=== PATIENT | male | born 1935 | race Caucasian/White ===

== ENCOUNTER 2017-10-13 18:08 | Emergency (ER) | payer MEDICARE, OTHER ==
[~2017-10-13] VITALS: Ht 177.8 cm; Wt 72.6 kg
[~2017-10-13 18:08] MED LIST: AMLO10 PO; AMLO5; ASPI81CH PO; ASPI81EC; ATEN25; ATOR10; Amlodipine Besy10 MG PO; CHOL10002; CLON.1 PO; COLCRYS0.6 MG; COLCRYS0.6 MG PO; CRUTCH4 USE; Cialis20 MG PO; FISH1000; FOLI1; HYDACE5 PO; LOVA40 PO; MULTI VIT QD; MULVIT; RAMI2.5; RXHYDACE PO; Ramipril5 MG PO; Synthroid25 MCG PO; TRAM50 PO; [UNRECOGNIZED DRUG - REMARK]
[2017-10-13 19:03] LABS: BASOPHILS ABSOLUTE AUTO 0.03 K/mm3 (0.00-0.23); BASOPHILS PERCENT AUTO 1 % (0-2); EOSINOPHILS ABSOLUTE AUTO 0.06 K/mm3 (0.00-0.68); EOSINOPHILS PERCENT AUTO 1 % (0-6); Hematocrit 38.3 % (37.0-53.0); Hemoglobin 13.2 g/dL (13.5-17.5); IMMATURE GRAN ABSOLUTE AUTO 0.01 K/mm3 (0.00-0.10); IMMATURE GRAN PERCENT AUTO 0 % (0-1); LYMPHOCYTES ABSOLUTE AUTO 0.96 K/mm3 (0.84-5.20); LYMPHOCYTES PERCENT AUTO 17 % (21-46); MONOCYTES PERCENT AUTO 9 % (4-13); Mean Corpuscular HGB 30.8 pg (26.0-34.0); Mean Corpuscular HGB Conc 34.5 g/dL (31.5-36.5); Mean Corpuscular Volume 89 fL (80-100); Mean Platelet Volume 8.7 fL (9.1-12.4); NEUTROPHILS ABSOLUTE AUTO 4.06 K/mm3 (1.96-9.15); NEUTROPHILS PERCENT AUTO 72 % (41-73); Platelet Count 330 K/mm3 (150-400); RDW Coefficient Variation 12.8 % (11.7-14.2); RDW Standard Deviation 42.2 fL (35.1-46.3); Red Blood Cell Count 4.29 M/mm3 (4.30-5.90); White Blood Cell Count 5.62 K/mm3 (4.00-11.30)
[2017-10-13] MEDS ORDERED: Saw Palmetto160 MG PO (19:07)
[2017-10-13] MEDS ORDERED: ASPI81CH PO (19:08)
[2017-10-13 19:22] LABS: Alanine Aminotransfer (ALT/SGP 27 U/L (12-78); Albumin, Blood 3.7 g/dL (3.4-5.0); Alk Phos 101 U/L (50-136); Anion Gap 9 mmol/L (6-16); Aspartate Aminotrans (AST/SGOT 31 U/L (12-37); Bilirubin, Total 0.5 mg/dL (0.1-1.0); Blood Urea Nitrogen 20 mg/dL (8-24); Bun/Creatinine Ratio 14.6 (12.0-20.0); CO2, Blood 26 mmol/L (21-32); Calcium, Blood 8.8 mg/dL (8.5-10.1); Chloride, Blood 100 mmol/L (98-108); Creatinine, Blood 1.37 mg/dL (0.60-1.20); Globulin, Blood 3.8 g/dL (2.2-4.0); Glomerular Filtration Rate 53 (60-); Glucose, Blood 114 mg/dL (70-99); Potassium, Blood 3.9 mmol/L (3.5-5.5); Sodium, Blood 135 mmol/L (136-145); Total Protein, Blood 7.5 g/dL (6.4-8.2)
[2017-10-13 20:15] LABS: Troponin I <0.015 ng/mL (0.000-0.040)
[2017-10-13] MEDS ORDERED: MOTION RELIEF25 MG PO (20:54)
[2017-10-13] MEDS ORDERED: Zofran Odt8 MG PO (20:54)
[2017-10-13] MEDS ORDERED: Ativan0.5 MG PO (20:54)
== END 2017-10-13 21:34 | disposition home or self-care (01) ==
LOC: ER 18:08
PROVIDERS: Emergency Medicine
DX: R42 Dizziness and giddiness (principal)
CPT/HCPCS: 36415; 70450; 80053; 84484; 85025; 93005; 93010; 96374; 96375; 99284; J2060; J2405

== ENCOUNTER 2018-09-07 11:40 | Observation (INO) | payer MEDICARE, OTHER ==
[~2018-09-07] VITALS: Ht 177.8 cm; Wt 68.3 kg
[~2018-09-07 11:40] MED LIST changes: +Ativan0.5 MG PO; +MOTION RELIEF25 MG PO; +Saw Palmetto160 MG PO; +Zofran Odt8 MG PO
[2018-09-07 12:24] LABS: BASOPHILS ABSOLUTE AUTO 0.02 K/mm3 (0.00-0.23); BASOPHILS PERCENT AUTO 0 % (0-2); EOSINOPHILS ABSOLUTE AUTO 0.03 K/mm3 (0.00-0.68); EOSINOPHILS PERCENT AUTO 0 % (0-6); Hematocrit 31.4 % (37.0-53.0); Hemoglobin 10.9 g/dL (13.5-17.5); IMMATURE GRAN ABSOLUTE AUTO 0.02 K/mm3 (0.00-0.10); IMMATURE GRAN PERCENT AUTO 0 % (0-1); LYMPHOCYTES ABSOLUTE AUTO 0.74 K/mm3 (0.84-5.20); LYMPHOCYTES PERCENT AUTO 10 % (21-46); MONOCYTES ABSOLUTE AUTO 0.91 K/mm3 (0.16-1.47); MONOCYTES PERCENT AUTO 12 % (4-13); Mean Corpuscular HGB 30.4 pg (26.0-34.0); Mean Corpuscular HGB Conc 34.7 g/dL (31.5-36.5); Mean Corpuscular Volume 88 fL (80-100); Mean Platelet Volume 8.3 fL (9.1-12.4); NEUTROPHILS ABSOLUTE AUTO 5.69 K/mm3 (1.96-9.15); NEUTROPHILS PERCENT AUTO 77 % (41-73); Platelet Count 312 K/mm3 (150-400); RDW Coefficient Variation 12.8 % (11.7-14.2); RDW Standard Deviation 41.7 fL (35.1-46.3); Red Blood Cell Count 3.58 M/mm3 (4.30-5.90); White Blood Cell Count 7.41 K/mm3 (4.00-11.30)
[2018-09-07 12:45] LABS: Albumin, Blood 3.3 g/dL (3.4-5.0); Bilirubin, Total 0.4 mg/dL (0.1-1.0); Calcium, Blood 8.4 mg/dL (8.5-10.1); Creatinine, Blood 1.86 mg/dL (0.60-1.20); Globulin, Blood 3.2 g/dL (2.2-4.0); Potassium, Blood 4.1 mmol/L (3.5-5.5); Total Protein, Blood 6.5 g/dL (6.4-8.2)
[2018-09-07] MEDS ORDERED: ANTACID 1000-21 EACH PO (15:32)
[2018-09-07] MEDS ORDERED: Calcium Magnes1 EACH PO (16:35)
--- NOTE | 2018-09-07 18:15 | NUR ---
SHIFT SUMMARY PT. [facility]EL[facility]IR WITH AND DAUGHTER BY HIS SIDE. HE IS VERY PLEASENT-AXO TO SELF, PLACE, SITUATION. HE DENIES PAIN AND SOB. HE IS IN NO DISTRESS, RESTING IN HIS ROOM WATCHING TELEVISION. HE IS INDEPENDENT IN HIS ROOM. HE REPORTS HAVING SHINGLES DIAGNOSED 4 MONTHS AGO. THE RASH IS VISIBLE ON HIS RIGHT AXILLARY/LATERAL RIGHT CHEST. THE RASH IS WELL LOCALIZED TO THAT AREA--NOT SPREADING TO ANTERIOR TRUNK. NO OPEN SORES OR CRUSTING OVER OF RASH. PATIENT UNDERSTANDS PLAN TO NPO AFTER MIDNIGHT FOR EGD IN MORNING
--- NOTE | 2018-09-07 18:31 | NUR ---
STUDENT HAS CARED FOR PT TODAY, PLEASE REFER TO STUDENT NOTES FOR SHIFT SUMMARY.
--- NOTE | 2018-09-08 05:14 | NUR ---
RATE INSERTER SUMMARY NO ACUTE CHANGES THIS SHIFT. PT AAOX4 AND COOPERATIVE WITH CARE. STANDBY ASSIST INTO THE BATHROOM. PT HAS BEEN NPO SINCE MIDNIGHT IN PREPARATION FOR AN EGD LATER THIS MORNING. PT DENIES PAIN, SOB, N/V. VSS, WILL CONTINUE TO MONITOR.
[2018-09-08 05:23] LABS: BASOPHILS ABSOLUTE AUTO 0.04 K/mm3 (0.00-0.23); BASOPHILS PERCENT AUTO 1 % (0-2); EOSINOPHILS ABSOLUTE AUTO 0.06 K/mm3 (0.00-0.68); EOSINOPHILS PERCENT AUTO 1 % (0-6); Hematocrit 33.9 % (37.0-53.0); Hemoglobin 11.3 g/dL (13.5-17.5); IMMATURE GRAN ABSOLUTE AUTO 0.01 K/mm3 (0.00-0.10); IMMATURE GRAN PERCENT AUTO 0 % (0-1); LYMPHOCYTES ABSOLUTE AUTO 0.93 K/mm3 (0.84-5.20); LYMPHOCYTES PERCENT AUTO 20 % (21-46); MONOCYTES ABSOLUTE AUTO 0.73 K/mm3 (0.16-1.47); MONOCYTES PERCENT AUTO 15 % (4-13); Mean Corpuscular HGB 29.5 pg (26.0-34.0); Mean Corpuscular HGB Conc 33.3 g/dL (31.5-36.5); Mean Corpuscular Volume 89 fL (80-100); Mean Platelet Volume 8.9 fL (9.1-12.4); NEUTROPHILS ABSOLUTE AUTO 2.96 K/mm3 (1.96-9.15); NEUTROPHILS PERCENT AUTO 63 % (41-73); Platelet Count 326 K/mm3 (150-400); RDW Standard Deviation 42.1 fL (35.1-46.3); Red Blood Cell Count 3.83 M/mm3 (4.30-5.90); White Blood Cell Count 4.73 K/mm3 (4.00-11.30)
[2018-09-08 05:35] LABS: International Normalized Ratio 1.03; Prothrombin Time Results 10.9 Sec (9.7-11.5)
[2018-09-08 05:43] LABS: Albumin, Blood 3.3 g/dL (3.4-5.0); Bilirubin, Total 0.4 mg/dL (0.1-1.0); Bun/Creatinine Ratio 16.5 (12.0-20.0); Calcium, Blood 8.7 mg/dL (8.5-10.1); Creatinine, Blood 1.27 mg/dL (0.60-1.20); Globulin, Blood 3.2 g/dL (2.2-4.0); Total Protein, Blood 6.5 g/dL (6.4-8.2)
--- NOTE | 2018-09-08 09:28 | NUR ---
BROUGHT FROM MEDICAL FLOOR TO SDS ALERT ORIENTED FAMILY AT BEDSIDE. BROUGHT TO [facility] ADMISSION TO UNIT STARTED.
--- NOTE | 2018-09-08 09:51 | NUR ---
09/08/18 0951 Jorge A Garcia Bite Block PlacedPATIENT DETERMINED TO BE ASA APPROPRIATE FOR PROPOFOL SEDATION PRIOR TO START OF PROCEDURE BY 3-LEAD EKG REVIEWED WITH PHYSICIAN PRIOR TO START OF PROCEDURE.Patient to ENDO 1History, Chart, Medications and Allergies reviewed before start of procedure.MONITOR INTACT WITH CONTINUOUS PULSE OXIMETRY AND INTERMITTENT BP.Patient confirms NPO status and agrees with scheduled surgery.O2 VIA N/C INTACT THROUGHOUT SEDATION/PROCEDURE.
[2018-09-08] MEDS ORDERED: PANT40 PO (12:07)
[2018-09-08] MEDS ORDERED: SUCR1 PO (12:08)
--- NOTE | 2018-09-08 13:18 | NUR ---
PT DISCHARGE AT 1240 WITH FAMILY TO TRANSPORT. PT WAS ABLE TO EAT HIS CLEAR DIET FOR LUNCH AND TOLERATED WELL. PT DOES TO A LOT OF CLEARING HIS THROAT. AOX4 COOPERATIVE OF CARE. PT HAD PAPERS REVIEWED AND EDUCATIONAL MATERIAL SENT WITH HIM. NO DISTRESS NOTED. REFUSED ESCORT VIA WHEELCHAIR AND WALKED OUT WITH FAMILY.
== END 2018-09-08 12:58 | disposition home or self-care (01) ==
LOC: ER 11:40 → MEDS 11:41 → ER 15:27 → MEDS 16:10 → ENPENDDIS 09-08 10:57 → MEDS 09-08 12:58
PROVIDERS: Emergency Medicine; Student in an Organized Health Care Education/Training Program; ADMIT Internal Medicine
PROC: 0D748ZZ Dilation of Esophagogastric Junction, Via Natural or Artificial Opening Endoscopic (ICD-10-PCS; principal; 2018-09-08 10:00)
PROC: 0DB48ZX Excision of Esophagogastric Junction, Via Natural or Artificial Opening Endoscopic, Diagnostic (ICD-10-PCS; principal; 2018-09-08 10:00)
DX: K22.10 Ulcer of esophagus without bleeding (principal); K22.2 Esophageal obstruction; K44.9 Diaphragmatic hernia without obstruction or gangrene; I10 Essential (primary) hypertension; E78.5 Hyperlipidemia, unspecified; I25.10 Atherosclerotic heart disease of native coronary artery without angina pectoris; I12.9 Hypertensive chronic kidney disease with stage 1 through stage 4 chronic kidney disease, or unspecified chronic kidney disease; N18.3 Chronic kidney disease, stage 3 (moderate); N17.9 Acute kidney failure, unspecified; E86.0 Dehydration; M17.0 Bilateral primary osteoarthritis of knee; M10.9 Gout, unspecified; Z79.82 Long term (current) use of aspirin; Z79.899 Other long term (current) drug therapy
CPT/HCPCS: 36415; 71046; 74220; 80053; 85025; 85610; 88305; 88312; 88342; 93005; 93010; 99285-25; C1726; G0378; J1644; J2704; J7120

== ENCOUNTER 2018-10-27 15:58 | Emergency (ER) | payer MEDICARE, OTHER ==
[~2018-10-27] VITALS: Ht 177.8 cm; Wt 68.0 kg
[~2018-10-27 15:58] MED LIST changes: +ANTACID 1000-21 EACH PO; +Calcium Magnes1 EACH PO; +PANT40 PO; +SUCR1 PO
[2018-10-27 17:49] LABS: BASOPHILS ABSOLUTE AUTO 0.03 K/mm3 (0.00-0.23); BASOPHILS PERCENT AUTO 1 % (0-2); EOSINOPHILS ABSOLUTE AUTO 0.04 K/mm3 (0.00-0.68); EOSINOPHILS PERCENT AUTO 1 % (0-6); Hematocrit 35.8 % (37.0-53.0); Hemoglobin 12.4 g/dL (13.5-17.5); IMMATURE GRAN ABSOLUTE AUTO 0.02 K/mm3 (0.00-0.10); IMMATURE GRAN PERCENT AUTO 0 % (0-1); LYMPHOCYTES ABSOLUTE AUTO 0.78 K/mm3 (0.84-5.20); LYMPHOCYTES PERCENT AUTO 12 % (21-46); MONOCYTES ABSOLUTE AUTO 0.62 K/mm3 (0.16-1.47); MONOCYTES PERCENT AUTO 9 % (4-13); Mean Corpuscular HGB Conc 34.6 g/dL (31.5-36.5); Mean Corpuscular Volume 87 fL (80-100); Mean Platelet Volume 8.4 fL (9.1-12.4); NEUTROPHILS ABSOLUTE AUTO 5.14 K/mm3 (1.96-9.15); NEUTROPHILS PERCENT AUTO 77 % (41-73); Platelet Count 318 K/mm3 (150-400); RDW Coefficient Variation 13.1 % (11.7-14.2); RDW Standard Deviation 40.9 fL (35.1-46.3); Red Blood Cell Count 4.14 M/mm3 (4.30-5.90); White Blood Cell Count 6.63 K/mm3 (4.00-11.30)
[2018-10-27 18:05] LABS: Bun/Creatinine Ratio 13.1 (12.0-20.0); Calcium, Blood 9.1 mg/dL (8.5-10.1); Creatinine, Blood 1.45 mg/dL (0.60-1.20); Potassium, Blood 3.6 mmol/L (3.5-5.5)
== END 2018-10-27 18:41 | disposition home or self-care (01) ==
LOC: ER 15:58
PROVIDERS: Emergency Medicine
DX: T18.128A Food in esophagus causing other injury, initial encounter (principal); I10 Essential (primary) hypertension; I25.2 Old myocardial infarction; Z79.899 Other long term (current) drug therapy
CPT/HCPCS: 80048; 85025; 96374; 96375; 99283-25; J1610; J2405

== ENCOUNTER 2018-10-28 10:08 | Day surgery (SDC) | payer MEDICARE, OTHER ==
[~2018-10-28] VITALS: Ht 177.8 cm; Wt 67.4 kg
== END 2018-10-28 11:35 | disposition home or self-care (01) ==
LOC: ORSCSDS 10:08
PROVIDERS: Internal Medicine Gastroenterology
PROC: 0DB68ZX Excision of Stomach, Via Natural or Artificial Opening Endoscopic, Diagnostic (ICD-10-PCS; principal; 2018-10-28 11:30)
PROC: 0DB58ZX Excision of Esophagus, Via Natural or Artificial Opening Endoscopic, Diagnostic (ICD-10-PCS; principal; 2018-10-28 11:30)
PROC: 0D758ZZ Dilation of Esophagus, Via Natural or Artificial Opening Endoscopic (ICD-10-PCS; principal; 2018-10-28 11:30)
DX: K22.70 Barrett's esophagus without dysplasia (principal); K22.2 Esophageal obstruction; K29.70 Gastritis, unspecified, without bleeding; K21.0 Gastro-esophageal reflux disease with esophagitis; R13.10 Dysphagia, unspecified; K31.9 Disease of stomach and duodenum, unspecified; I10 Essential (primary) hypertension; E78.5 Hyperlipidemia, unspecified; Z79.899 Other long term (current) drug therapy
CPT/HCPCS: 88305; 88341; 88342; C1726; J2704; J7120

== ENCOUNTER 2020-01-16 09:36 | Day surgery (SDC) | payer MEDICARE, OTHER ==
[~2020-01-16] VITALS: Ht 177.8 cm; Wt 70.3 kg
[~2020-01-16 09:36] MED LIST changes: +AMLO5 PO; +MELATONIN5 M1 PO; +RAMI2.5 PO
== END 2020-01-16 11:40 | disposition home or self-care (01) ==
LOC: ORSCSDS 09:36
PROVIDERS: Internal Medicine Gastroenterology
PROC: 0DBH8ZX Excision of Cecum, Via Natural or Artificial Opening Endoscopic, Diagnostic (ICD-10-PCS; principal; 2020-01-16 11:00)
PROC: 0DBK8ZX Excision of Ascending Colon, Via Natural or Artificial Opening Endoscopic, Diagnostic (ICD-10-PCS; principal; 2020-01-16 11:00)
DX: Z12.11 Encounter for screening for malignant neoplasm of colon (principal); Z86.010 Personal history of colon polyps; D12.0 Benign neoplasm of cecum; D12.2 Benign neoplasm of ascending colon; K64.8 Other hemorrhoids; K57.30 Diverticulosis of large intestine without perforation or abscess without bleeding; I12.9 Hypertensive chronic kidney disease with stage 1 through stage 4 chronic kidney disease, or unspecified chronic kidney disease; N18.3 Chronic kidney disease, stage 3 (moderate); E78.5 Hyperlipidemia, unspecified; I25.10 Atherosclerotic heart disease of native coronary artery without angina pectoris; K22.70 Barrett's esophagus without dysplasia; Z79.899 Other long term (current) drug therapy
CPT/HCPCS: 88305; J2704; J7120

== ENCOUNTER → 2021-03-04 | Outpatient (CLI) | payer MEDICARE, OTHER ==
[2021-03-04 13:12] LABS: Alanine Aminotransfer (ALT/SGP 27 U/L (12-78); Albumin, Blood 4.1 g/dL (3.4-5.0); Alk Phos 121 U/L (50-136); Anion Gap 6 mmol/L (6-16); Aspartate Aminotrans (AST/SGOT 35 U/L (12-37); Bilirubin, Total 0.5 mg/dL (0.1-1.0); Blood Urea Nitrogen 25 mg/dL (8-24); Bun/Creatinine Ratio 18.7 (12.0-20.0); CO2, Blood 25 mmol/L (21-32); Calcium, Blood 9.5 mg/dL (8.5-10.1); Chloride, Blood 102 mmol/L (98-108); Creatinine, Blood 1.34 mg/dL (0.60-1.20); Globulin, Blood 4.2 g/dL (2.2-4.0); Glomerular Filtration Rate 51 (60-); Glucose, Blood 134 mg/dL (70-99); Potassium, Blood 4.4 mmol/L (3.5-5.5); Sodium, Blood 133 mmol/L (136-145); Total Protein, Blood 8.3 g/dL (6.4-8.2)
[2021-03-04 13:24] LABS: PSA, %Free 30.8 %
== END ==
LOC: LAB SHORT 10:50 → LAB 10:50
PROVIDERS: Family Medicine
DX: R97.20 Elevated prostate specific antigen [PSA] (principal); R39.198 Other difficulties with micturition; Z87.898 Personal history of other specified conditions
CPT/HCPCS: 80053; 84153; 84154

== ENCOUNTER 2021-03-13 06:52 | Emergency (ER) | payer MEDICARE, OTHER ==
[~2021-03-13] VITALS: Ht 177.8 cm; Wt 68.0 kg
[2021-03-13 07:50] LABS: Source, Urine Clean Catch
[2021-03-13 08:00] LABS: Appearance, Urine Clear (Clear); Bilirubin, Urine Neg (Neg); Blood, Urine 2+ (Neg); Color, Urine Yellow (P-Yellow); Glucose Qualitative, Urine Neg (Neg); Ketones, Urine Neg (Neg); Leukocyte Esterase, Urine Neg (Neg); Nitrite, Urine Neg (Neg); Protein, Urine 2+ (Neg); Urobilinogen, Urine NORM (Normal); pH, Urine 6.5 (5.0-8.0)
[2021-03-13 08:11] LABS: Bacteria Not Seen /hpf; Hyaline Casts 0-2 /lpf (0-2); Red Blood Cells, Urine 0-2 /hpf (0-2); Squamous Epithelial Cells Rare /hpf (Few); White Blood Cells, Urine 0-2 /hpf (0-5)
[2021-03-13] MEDS ORDERED: TAMSULOSIN HCL0.4 M1 PO (08:35)
== END 2021-03-13 09:03 | disposition home or self-care (01) ==
LOC: ER 06:52
PROVIDERS: Emergency Medicine
DX: R33.9 Retention of urine, unspecified (principal); I10 Essential (primary) hypertension; I25.2 Old myocardial infarction; Z79.899 Other long term (current) drug therapy
CPT/HCPCS: 51702; 51798; 81001; 99283-25

== ENCOUNTER 2021-03-13 17:00 | Emergency (ER) | payer MEDICARE, OTHER ==
[~2021-03-13] VITALS: Ht 177.8 cm; Wt 68.0 kg
[~2021-03-13 17:00] MED LIST changes: +TAMSULOSIN HCL0.4 M1 PO
== END 2021-03-13 19:21 | disposition home or self-care (01) ==
LOC: ER 17:00
DX: T83.038A Leakage of other urinary catheter, initial encounter (principal); I10 Essential (primary) hypertension; I25.2 Old myocardial infarction; Z79.899 Other long term (current) drug therapy
CPT/HCPCS: 51798; 99283-25

== ENCOUNTER 2021-07-03 05:53 | Emergency (ER) | payer MEDICARE, OTHER ==
[~2021-07-03] VITALS: Ht 177.8 cm; Wt 72.6 kg
[2021-07-03 06:43] LABS: BASOPHILS ABSOLUTE AUTO 0.06 K/mm3 (0.00-0.23); BASOPHILS PERCENT AUTO 1 % (0-2); EOSINOPHILS ABSOLUTE AUTO 0.19 K/mm3 (0.00-0.68); EOSINOPHILS PERCENT AUTO 2 % (0-6); Hematocrit 26.3 % (37.0-53.0); Hemoglobin 8.2 g/dL (13.5-17.5); IMMATURE GRAN ABSOLUTE AUTO 0.04 K/mm3 (0.00-0.10); IMMATURE GRAN PERCENT AUTO 1 % (0-1); LYMPHOCYTES PERCENT AUTO 8 % (21-46); MONOCYTES PERCENT AUTO 10 % (4-13); Mean Corpuscular HGB 27.5 pg (26.0-34.0); Mean Corpuscular HGB Conc 31.2 g/dL (31.5-36.5); Mean Corpuscular Volume 88 fL (80-100); Mean Platelet Volume 9.7 fL (9.1-12.4); NEUTROPHILS ABSOLUTE AUTO 6.82 K/mm3 (1.96-9.15); NEUTROPHILS PERCENT AUTO 78 % (41-73); Platelet Count 339 K/mm3 (150-400); RDW Coefficient Variation 14.9 % (11.7-14.2); RDW Standard Deviation 47.5 fL (35.1-46.3); Red Blood Cell Count 2.98 M/mm3 (4.30-5.90); White Blood Cell Count 8.71 K/mm3 (4.00-11.30)
[2021-07-03 06:47] LABS: Albumin, Blood 2.5 g/dL (3.4-5.0); Albumin/Globulin Ratio 0.6 (0.8-1.8); Bilirubin, Total 0.4 mg/dL (0.1-1.0); Bun/Creatinine Ratio 17.1 (12.0-20.0); Calcium, Blood 8.3 mg/dL (8.5-10.1); Creatinine, Blood 2.99 mg/dL (0.60-1.20); Magnesium, Blood 2.2 mg/dL (1.6-2.4); Potassium, Blood 4.5 mmol/L (3.5-5.5); Total Protein, Blood 6.5 g/dL (6.4-8.2)
[2021-07-03] MEDS ORDERED: BUME2 PO (10:01)
[2021-07-03] MEDS ORDERED: METO25ER PO (10:01)
[2021-07-07] MEDS ORDERED: ELIQUIS2.5 M1 PO (18:40)
[2021-07-07] MEDS ORDERED: DECARA1250 MC1 PO (18:40)
[2021-07-07] MEDS ORDERED: FERSU300 PO (18:41)
[2021-07-07] MEDS ORDERED: LACT PO (18:42)
[2021-07-07] MEDS ORDERED: Cefpodoxime Pr100 MG PO (20:42)
[2021-07-07] MEDS ORDERED: DIFLUCAN100 MG PO (20:42)
== END 2021-07-03 10:36 | disposition home or self-care (01) ==
LOC: ER 05:53
PROVIDERS: Emergency Medicine
DX: I48.92 Unspecified atrial flutter (principal); I48.91 Unspecified atrial fibrillation; R60.9 Edema, unspecified; J81.1 Chronic pulmonary edema; I12.9 Hypertensive chronic kidney disease with stage 1 through stage 4 chronic kidney disease, or unspecified chronic kidney disease; N18.9 Chronic kidney disease, unspecified; I25.2 Old myocardial infarction; Z85.46 Personal history of malignant neoplasm of prostate; Z79.899 Other long term (current) drug therapy
CPT/HCPCS: 71045; 80053; 83735; 83880; 84484; 85025; 93005; 93010; 96374; 96375; 99284-25

== ENCOUNTER 2021-07-12 02:35 | Inpatient (IN) | payer MEDICARE, OTHER ==
[~2021-07-12] VITALS: Ht 177.8 cm; Wt 73.7 kg
[~2021-07-12 02:35] MED LIST changes: +BUME2 PO; +Cefpodoxime Pr100 MG PO; +DECARA1250 MC1 PO; +DIFLUCAN100 MG PO; +ELIQUIS2.5 M1 PO; +FERSU300 PO; +LACT PO; +METO25ER PO
[2021-07-12 03:15] LABS: Albumin, Blood 2.8 g/dL (3.4-5.0); Albumin/Globulin Ratio 0.6 (0.8-1.8); Bilirubin, Total 0.8 mg/dL (0.1-1.0); Bun/Creatinine Ratio 17.3 (12.0-20.0); Calcium, Blood 8.7 mg/dL (8.5-10.1); Creatinine, Blood 3.65 mg/dL (0.60-1.20); Globulin, Blood 4.7 g/dL (2.2-4.0); Potassium, Blood 5.3 mmol/L (3.5-5.5); Total Protein, Blood 7.5 g/dL (6.4-8.2)
[2021-07-12 03:18] LABS: BASOPHILS ABSOLUTE AUTO 0.05 K/mm3 (0.00-0.23); BASOPHILS PERCENT AUTO 1 % (0-2); EOSINOPHILS ABSOLUTE AUTO 0.04 K/mm3 (0.00-0.68); EOSINOPHILS PERCENT AUTO 1 % (0-6); Hematocrit 30.9 % (37.0-53.0); Hemoglobin 9.7 g/dL (13.5-17.5); IMMATURE GRAN ABSOLUTE AUTO 0.05 K/mm3 (0.00-0.10); IMMATURE GRAN PERCENT AUTO 1 % (0-1); LYMPHOCYTES PERCENT AUTO 11 % (21-46); MONOCYTES ABSOLUTE AUTO 0.75 K/mm3 (0.16-1.47); MONOCYTES PERCENT AUTO 9 % (4-13); Mean Corpuscular HGB 27.6 pg (26.0-34.0); Mean Corpuscular HGB Conc 31.4 g/dL (31.5-36.5); Mean Corpuscular Volume 88 fL (80-100); Mean Platelet Volume 9.9 fL (9.1-12.4); NEUTROPHILS ABSOLUTE AUTO 6.49 K/mm3 (1.96-9.15); NEUTROPHILS PERCENT AUTO 78 % (41-73); Platelet Count 236 K/mm3 (150-400); RDW Standard Deviation 50.7 fL (35.1-46.3); Red Blood Cell Count 3.51 M/mm3 (4.30-5.90); White Blood Cell Count 8.28 K/mm3 (4.00-11.30)
[2021-07-12 03:25] LABS: International Normalized Ratio 1.19; Prothrombin Time Results 12.4 Sec (9.7-11.5)
[2021-07-12 04:35] LABS: Influenza A, PCR NEGATIVE (NEGATIVE); Influenza B, PCR NEGATIVE (NEGATIVE); Resp Syncytial Virus, PCR NEGATIVE (NEGATIVE); SARS-Cov-2 (COVID-19) PCR, MMC NEGATIVE (NEGATIVE)
--- NOTE | 2021-07-12 07:10 | NUR ---
INITIAL ASSESSMENT: Patient is alert and oriented. He just arrived to his room from the ED. He was slid from the gurney to the bed. He reports minimal pain to his left foot with staff touching it, he states if no one is touching it he feels no pain. HR irreg, a-fib in the low 100s-pt states this is chronic. LS DIM in the bases, biox wnl on RA. BT+, abd non-tender to light palpation. Patient denies N/V. PPP. Left LLE with 3+ pitting edema, Right foot with 2+ pitting edema. pedal pulses faint. VSS. Daughter at bedside. Patient states he has been getting progressively more SOB for the last few days at home thus he called 911 and arrived to the ED via EMS. He has been oriented to the room and the call light. He denies other needs at this time. Call light in reach, WCTM.
[2021-07-12 12:44] LABS: Albumin, Blood 2.5 g/dL (3.4-5.0); Albumin/Globulin Ratio 0.5 (0.8-1.8); Bilirubin, Total 0.7 mg/dL (0.1-1.0); Bun/Creatinine Ratio 17.9 (12.0-20.0); Calcium, Blood 8.4 mg/dL (8.5-10.1); Creatinine, Blood 3.68 mg/dL (0.60-1.20); Globulin, Blood 4.6 g/dL (2.2-4.0); Potassium, Blood 4.9 mmol/L (3.5-5.5); Total Protein, Blood 7.1 g/dL (6.4-8.2)
--- NOTE | 2021-07-12 12:47 | NUR ---
Update: has been by to see the patient. She ordered a one time cardizem push of 10 mg, this was given. HR was initially in the 115-120s, after push it dropped down into the 80s-90s. Patient is SOB with minimal activity, biox 93% he is now on 1L, he was not tolerating lying flat for his ECHO.
--- NOTE | 2021-07-12 14:45 | NUR ---
Update: This RN went to check on the patient and noticed on the monitor he converted to NSR, with the assistance of the global technical writer we came up with a time of 1406 for the conversion. The patient states, "I am feeling so much better." JVD has improved significantly. VSS. I notified Dr. Rouse of the conversion, plans to keep an eye on the patient, diurese him further and notify MD if he goes back into a-fib. Patient and daughter deny other needs at this time. Call deanna in [place].
--- NOTE | 2021-07-12 15:59 | NUR ---
Spiritual care visit conducted. Patient is lying in bed and alert. Daughter Deleta is bedside. Patient intially declines a spiritual care visit but then begins talking at length about his long time Mandaen luzma, the recent of his (She a little over 2 mos ago), and the peace that he has about . Pt tells me. "my can't come to me but I can go to her." He also shares that this morning he was much more ready to be with her (given how he was feeling) then he is much less ready during our visit (because he has improved significantly). Pt and Deleta are emotional at times when talking about his 's and his possible demise. I explore their feelings of sadness and their hopes during this hospital stay. I encourage helpful attitudes and practices, normalize his experience and provide therapeutic listening, gentle career placement services counselor, grief support and prayer. Patient responds well and shows signs of an elevated mood and outlook and of being comforted. I will continue to remain available to assist patient in coping with bereavement and dealing with the emotional/spiritual aspects of his medical conditions.
[2021-07-12 17:30] LABS: Albumin, Blood 2.4 g/dL (3.4-5.0); Albumin/Globulin Ratio 0.5 (0.8-1.8); Bilirubin, Total 0.6 mg/dL (0.1-1.0); Bun/Creatinine Ratio 17.7 (12.0-20.0); Calcium, Blood 8.4 mg/dL (8.5-10.1); Creatinine, Blood 3.9 mg/dL (0.60-1.20); Globulin, Blood 4.5 g/dL (2.2-4.0); Total Protein, Blood 6.9 g/dL (6.4-8.2)
--- NOTE | 2021-07-12 19:23 | NUR ---
Summary: Patient has been alert and oriented t/o the shift. HR a-fib in the morning. He was given his home dose of metoprolol and an IV dose of Cardizem, by 1408 he converted to SR in the 70s. He has JVD today, it got better with the conversion. LS DIM in the bases, biox has been stable on RA to 1l. He is very SOB with any activity. BT+, he was able to get OOB to the BSC and have a BM. Peng cath present on admission, total of 525 cc UO for the shift. No other acute changes this shift. His daughter has been at the bedside t/o the day, attentive and loving.
--- NOTE | 2021-07-12 22:59 | NUR ---
CALL PLACED OUT TO IN HOUSE DOCTOR. EPSTEIN CONCERNING PATIENT CHANGE OF STATUS AFIB AT 2201 HR IN 120-126's.NEW ORDERS GIVEN TO ADMINISTER METOPROLOL 12.5MG PO NOW. AND THEN CARDIZEM AT 2300. PATIENT TRANSFER FOM BED TO RECLINER FOR COMFORT. DAUGHTER AT BEDSIDE. SAFETY MAINTAINED. CONTINUE T MONITOR PATIENT CONDITION.
[2021-07-13 04:46] LABS: BASOPHILS ABSOLUTE AUTO 0.04 K/mm3 (0.00-0.23); BASOPHILS PERCENT AUTO 1 % (0-2); EOSINOPHILS ABSOLUTE AUTO 0.07 K/mm3 (0.00-0.68); EOSINOPHILS PERCENT AUTO 1 % (0-6); Hematocrit 29.7 % (37.0-53.0); Hemoglobin 9.4 g/dL (13.5-17.5); IMMATURE GRAN ABSOLUTE AUTO 0.05 K/mm3 (0.00-0.10); IMMATURE GRAN PERCENT AUTO 1 % (0-1); LYMPHOCYTES ABSOLUTE AUTO 0.78 K/mm3 (0.84-5.20); LYMPHOCYTES PERCENT AUTO 9 % (21-46); MONOCYTES ABSOLUTE AUTO 0.76 K/mm3 (0.16-1.47); MONOCYTES PERCENT AUTO 9 % (4-13); Mean Corpuscular HGB 27.6 pg (26.0-34.0); Mean Corpuscular HGB Conc 31.6 g/dL (31.5-36.5); Mean Corpuscular Volume 87 fL (80-100); Mean Platelet Volume 10.1 fL (9.1-12.4); NEUTROPHILS PERCENT AUTO 80 % (41-73); Platelet Count 211 K/mm3 (150-400); RDW Standard Deviation 49.5 fL (35.1-46.3)
[2021-07-13 04:50] LABS: Albumin, Blood 2.3 g/dL (3.4-5.0); Albumin/Globulin Ratio 0.5 (0.8-1.8); Bilirubin, Total 0.6 mg/dL (0.1-1.0); Calcium, Blood 8.4 mg/dL (8.5-10.1); Creatinine, Blood 3.9 mg/dL (0.60-1.20); Globulin, Blood 4.3 g/dL (2.2-4.0); Total Protein, Blood 6.6 g/dL (6.4-8.2)
--- NOTE | 2021-07-13 09:00 | NUR ---
INITIAL ASSESSMENT: Patient is sitting up in the recliner after eating breakfast. He is alert and oriented x4. He denies pain at this time. HR irreg, a-flutter in the 70s-80s per telemetry. LS Dim in the bases, biox 97% on 1L will trial patient on RA. BT+. PPP. Patient has 2+ pitting edema to RLE and 3+ pitting edema to LLE. Patient has been c/o itching, which he states is chronic, blue cream applied to affected areas-this seems to provide relief. VSS. Daughter at bedside, attentive and loving. Patient denies other needs at this time. Call light in reach. Patient given AM meds whole with a sip of water, he was able to swallow with out difficulty. Patient and daughter deny other needs at this time, WCTM.
--- NOTE | 2021-07-13 10:15 | NUR ---
Conversion: Patient converted from A-Flutter to SR.
--- NOTE | 2021-07-13 13:30 | NUR ---
Spiritual care visit conducted. Patient is sitting on a chair and alert. Patient tells me about the ups and downs in trying to manage his heart, kidneys and lungs all at the same time. He tells me that he is "a bit down" today but he says if he can regain his life back without too many limitations it will "all be worth it." Pt states that he is exhausted but he can't sleep. I provide therapeutic listening and prayer. Patient responds well and states that the prayer was the boost that he needed. I will continue to remain available to patient and family.
--- NOTE | 2021-07-13 16:00 | NUR ---
Update: Patient is resting in bed with eyes closed, daughter reports looking at the monitor and seeing the heart rate jump up to the 120s-130s. Currently he is in A-Flutter. He was in Flutter for a couple of minutes then converted back to SR with PACs. Other VSS. Assessment otherwise unchanged. Patient and daughter denies other needs at this time. Call light in reach, [facility].
--- NOTE | 2021-07-13 18:13 | NUR ---
Summary: Patient is alert and oriented x4. Daughter has been at the bedside the majority of the shift-she is very attentive and assists with care. No reports of pain for this shift. HR has been in and out of sinus and A-Fib/Flutter. LS Dim in the bases, Biox has been WNL on 1L to RA.VQ scan ordered, per imaging we are out of the medication needed for this study, it will be completed tomorrow morning around 9 am. He has been more activity tolerant and able to ambulate to the end of the vargas. He has been OOB to the recliner a couple of times during the shift. Edema in the BLE is 2+ on the right and 3+ on the left. Records requested from the patients recent stay at [facility], no records recieved yet (a follow up phone call was placed). No other acute changes this shift. Will report to oncoming RN.
--- NOTE | 2021-07-14 02:55 | NUR ---
PATIENT REMAINS IN BED ALERT AND ORIENTED ABLE TO MAKE NEEDS KNOWN. DAUGHTER AT BEDSIDE. PATIENT CONVERT TO AFIB DENIES PAIN ON ASSESSMENT. CONCTINUE TO MONITOR PATIENT CONDITION. LUNG SOUNDS DIMINISHED ON ASSESSMENT. BOMEL SOUNDS PATENT LAST BM 07/13. PATIENT ONE ASSIST WITH ABULATION AND TRANSFER.SAFETY MAINTAINED.CALL LIGHT WITHIN REACH.
[2021-07-14 06:19] LABS: BASOPHILS ABSOLUTE AUTO 0.03 K/mm3 (0.00-0.23); BASOPHILS PERCENT AUTO 0 % (0-2); EOSINOPHILS ABSOLUTE AUTO 0.08 K/mm3 (0.00-0.68); EOSINOPHILS PERCENT AUTO 1 % (0-6); Hematocrit 30.6 % (37.0-53.0); Hemoglobin 9.6 g/dL (13.5-17.5); IMMATURE GRAN ABSOLUTE AUTO 0.05 K/mm3 (0.00-0.10); IMMATURE GRAN PERCENT AUTO 1 % (0-1); LYMPHOCYTES PERCENT AUTO 10 % (21-46); MONOCYTES ABSOLUTE AUTO 0.74 K/mm3 (0.16-1.47); MONOCYTES PERCENT AUTO 8 % (4-13); Mean Corpuscular HGB 27.6 pg (26.0-34.0); Mean Corpuscular HGB Conc 31.4 g/dL (31.5-36.5); Mean Corpuscular Volume 88 fL (80-100); Mean Platelet Volume 10.3 fL (9.1-12.4); NEUTROPHILS ABSOLUTE AUTO 7.38 K/mm3 (1.96-9.15); NEUTROPHILS PERCENT AUTO 80 % (41-73); Platelet Count 228 K/mm3 (150-400); RDW Coefficient Variation 15.9 % (11.7-14.2); RDW Standard Deviation 49.6 fL (35.1-46.3); Red Blood Cell Count 3.48 M/mm3 (4.30-5.90); White Blood Cell Count 9.18 K/mm3 (4.00-11.30)
[2021-07-14 06:33] LABS: Albumin, Blood 2.3 g/dL (3.4-5.0); Anion Gap 11 mmol/L (6-16); Blood Urea Nitrogen 83 mg/dL (8-24); Bun/Creatinine Ratio 19.9 (12.0-20.0); CO2, Blood 20 mmol/L (21-32); Calcium, Blood 8.3 mg/dL (8.5-10.1); Chloride, Blood 100 mmol/L (98-108); Creatinine, Blood 4.17 mg/dL (0.60-1.20); Glomerular Filtration Rate 14 (60-); Glucose, Blood 125 mg/dL (70-99); Potassium, Blood 4.4 mmol/L (3.5-5.5); Sodium, Blood 131 mmol/L (136-145)
--- NOTE | 2021-07-14 17:02 | NUR ---
SHIFT SUMMARY PT HAS BEEN UP TO AMBULATE IN THE HALLS WITH ASSISTANCE ON MORE THAN ONE OCCASION. PT HAS HAD SOME DIFFICULTY MAINTAINING COMFORT WHILE IN BED. AMBULATION AND A HEATING PAD HELPED THE PT TO ESTABLISH SOME LEVEL OF COMFORT. A 24 HOUR URINE COLLECTION WAS STARTED AT 1600. VITAL SIGNS HAVE BEEN STABLE AND THERE HAVE BEEN NO ACUTE CHANGES TO PT CONDITION.
--- NOTE | 2021-07-15 00:13 | NUR ---
PT IS A&OX4. UP AMBUALTING IN HALLWAY X 1 AND BATHROOM X 1. GAIT IS STEADY, POSTURE STOOPED, AMBUALTES WITH FWW AND 1 SBA. LUCAS CATHETER DRAINING CLEAR, YELLOW URINE. TELEMETRY IN PLACE, HR SINUS RHYTHM IN THE 80'S. DAUGHTER ATTENTIVE AT BEDSIDE. SAFETY MEASURES IN PLACE.
[2021-07-15 04:36] LABS: Hematocrit 29.3 % (37.0-53.0); Hemoglobin 9.4 g/dL (13.5-17.5)
[2021-07-15 05:26] LABS: Albumin, Blood 2.4 g/dL (3.4-5.0); Anion Gap 11 mmol/L (6-16); Blood Urea Nitrogen 94 mg/dL (8-24); Bun/Creatinine Ratio 20.8 (12.0-20.0); CO2, Blood 21 mmol/L (21-32); Calcium, Blood 8.5 mg/dL (8.5-10.1); Chloride, Blood 97 mmol/L (98-108); Creatinine, Blood 4.52 mg/dL (0.60-1.20); Glomerular Filtration Rate 12 (60-); Glucose, Blood 127 mg/dL (70-99); Magnesium, Blood 2.3 mg/dL (1.6-2.4); Phosphorus, Blood 5.4 mg/dL (2.5-4.9); Potassium, Blood 4.6 mmol/L (3.5-5.5); Sodium, Blood 129 mmol/L (136-145)
--- NOTE | 2021-07-15 06:47 | NUR ---
DR. ROMERO BEDSIDE; ORDERS RECIEVED.
--- NOTE | 2021-07-15 06:53 | NUR ---
DR. ROMERO BEDSIDE; STAT CORITSOL LAB; THEN GIVE IV SOLUMEDROL. DR. ROMERO WOULD LIKE A CALL FROM DORIANILGERA RN BY NOON FOR UPDATE.
--- NOTE | 2021-07-15 15:00 | NUR ---
Spoke with Dr Wells and discussed case. Pt and family may benefit from advanced care planning and discussion regarding code status. PT Jordan just finished working with Pt. Pt denies pain at this time. Daughter Deleta at bedside. 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 This RN Thanked him for his service. Engaged in therapeutic conversation regarding advanced care planning. Educated on disease process including trajectory of disease. Educated on the importance of routine conversations with PCP and developing multiple plans as disease progresses. Offered therapeutic listening and answered questions. Deferred some questions for MD to answer. Educated on life sustaining treatments including risk factors and implications of CPR. Deleta reports she will relay information to other family members and will discuss with them when able. No other concerns reported at this time. Spoke with Dr Wells and relayed questions family had. Palliative Care will remain available.
[2021-07-15 17:29] LABS: Protein, Urine Quantitative 104.9 mg/dL (0.0-11.9)
--- NOTE | 2021-07-15 18:27 | NUR ---
SHIFT SUMMARY PT A/O X4 AND COOPERATIVE OF CARE. PT ABLE TO EXPRESS NEEDS AND CALLS APPROPIATE, DAUGHTER AT THE BEDSIDE. VSS THROUGHOUT SHIFT WITH O2 SATS >95% ON RA. NO REPORT OF CHEST PAIN/PRESSURE THROUGHOUT SHIFT. PT REPORTED SOB WITH EXERTION IN THE MORNING, REPORTED "FEELING BETTER" TOWARDS THE END OF SHIFT. 24HR URINE COLLECTED AND SENT TO LAB. PT REPORTED PAIN AT THE IV SITE WHEN FLUSHING IV, PAIN WENT AWAY AFTER STRAIGHTENING PT ARM WHILE FLUSHING. LUCAS IN PLACE DRAINING TO GRAVITY, CLEAR/YELLOW URINE. PT RECIEVING BUMEX TID. PT REMAINED ON 1,000ML FLUID RESTRICTION.
--- NOTE | 2021-07-15 23:22 | NUR ---
PT IS A&OX3. PT DENIES FEELING ANY SOB WHEN RESTING IN BED, SOB PRESENT WITH EXERTION. LUCAS CATHETER IN PLACE DRAINING CLEAR, YELLOW URINE. PT'S TELE SHOWING HR IN RINUS RHYTHM IN THE 80'S. DAUGHTER ATTENTIVE AT BEDSIDE. SAFETY MEASURES IN PLACE.
[2021-07-16 03:42] LABS: Hematocrit 28.3 % (37.0-53.0); Hemoglobin 9.2 g/dL (13.5-17.5)
[2021-07-16 04:14] LABS: Albumin, Blood 2.2 g/dL (3.4-5.0); Anion Gap 12 mmol/L (6-16); Blood Urea Nitrogen 108 mg/dL (8-24); Bun/Creatinine Ratio 22.9 (12.0-20.0); CO2, Blood 23 mmol/L (21-32); Calcium, Blood 8.1 mg/dL (8.5-10.1); Chloride, Blood 96 mmol/L (98-108); Creatinine, Blood 4.71 mg/dL (0.60-1.20); Glomerular Filtration Rate 12 (60-); Glucose, Blood 192 mg/dL (70-99); Magnesium, Blood 2.3 mg/dL (1.6-2.4); Phosphorus, Blood 6.1 mg/dL (2.5-4.9); Potassium, Blood 4.6 mmol/L (3.5-5.5); Sodium, Blood 131 mmol/L (136-145)
--- NOTE | 2021-07-16 06:13 | NUR ---
DR. ROMERO ROUNDING THIS A.M. INFORMED OF MORNING ELECTROLYTES. BUMEX DECREASED TO [address] ROMERO'S INSTRUCTIONS. PT/OT ORDERED AT DR. ROMERO'S REQUEST. PT ATTEMPTING TO GET OUT OF BED WITHOUT ASSISTANCE THIS A.M. STATING "I DIDN'T WANT TO BOTHER ANYONE". REINFORCED USE OF CALL LIGHT. PT UP TO BATHROOM TO HAVE BM PER PT REPORT, FLUSHED BEFORE ABLE TO OBSERVE. PT USES CALL LIGHT AT A LATER TIME, AMBULATING IN HALLWAY WITH STATE ASSESSED PROPERTIES DIRECTOR. RETURNED TO BED. DAUGHTER ATTENTIVE AT BEDSIDE.
--- NOTE | 2021-07-16 17:51 | NUR ---
SHIFT SUMMARY PT A/O X4 AND COOPERATIVE OF CARE. VSS THROUGHOUT SHIFT WITH O2 SATS >95% ON RA. PER REPORT FROM NOC RN, PT WAS ABLE TO WALK HALLWAY LOOP BY ICU, PT REPORTED TO THIS RN THAT HE "FELT PRETTY GOOD" AFTER COMPLETION OF WALK AND THAT HE HAD SLIGHTL SOB FOR WALK. NO REPORT OF CHEST PAIN/PRESSURE THROUGHOUT SHIFT. PT REPORTS "FEELING MUCH BETTER TODAY." PT HAD MULTIPLE PERIODS OF SLEEP THROUGHOUT DAY. PT SEEN BY CARDIOLY WITH FAMILY PRESENT, INFORMED FAMILY OF CURRENT PLAN FOR TREATMENT. LUCAS IN PLACE DRAINING TO GRAVITY.
--- NOTE | 2021-07-16 22:36 | NUR ---
PT HAS BEEN A&OX4. STATES HIS BREATHING HAS IMPROVED THIS EVENING. ABLE TO AMBULATE IN HALLWAY FROM PCU, PAST ICU, AND BACK TO PCU COMPLETE LAC VIEUX, NO SOB. EDEMA VISIBLY DECREASED FROM LAST EVENING SHIFT. LUCAS CONTINUES TO DRAIN CLEAR, YELLOW URINE. HR REMAINS IN SINUS RHYTHM. DAUGHTER STATES CONCERN PT'S HR WAS IN THE 60'S, TEACHING PERFORMED, PT HR HAS BEEN IN THE 60'S FOR THE LAST TWO EVENING SHIFT. DAUGHTER APPEARS CONSOLED. PT LEFT RESTING IN BED. SAFETY MEASURES IN PLACE.
--- NOTE | 2021-07-16 23:55 | NUR ---
PT RESTING IN BED, NO VISIBLE APPEARANCE OF DISTRESS. DAUGHTER ATTENTIVE AT BEDSIDE.
[2021-07-17 03:40] LABS: Hematocrit 28.8 % (37.0-53.0); Hemoglobin 9.5 g/dL (13.5-17.5)
[2021-07-17 04:00] LABS: Albumin, Blood 2.5 g/dL (3.4-5.0); Anion Gap 11 mmol/L (6-16); Blood Urea Nitrogen 120 mg/dL (8-24); Bun/Creatinine Ratio 26.7 (12.0-20.0); CO2, Blood 25 mmol/L (21-32); Calcium, Blood 8.4 mg/dL (8.5-10.1); Chloride, Blood 94 mmol/L (98-108); Creatinine, Blood 4.49 mg/dL (0.60-1.20); Glomerular Filtration Rate 13 (60-); Glucose, Blood 152 mg/dL (70-99); Magnesium, Blood 2.3 mg/dL (1.6-2.4); Phosphorus, Blood 6.2 mg/dL (2.5-4.9); Potassium, Blood 4.3 mmol/L (3.5-5.5); Sodium, Blood 130 mmol/L (136-145)
--- NOTE | 2021-07-17 19:38 | NUR ---
SHIFT SUMMARY PT WAS ALERT AND ORIENTED T/O SHIFT, ABLE TO AMBULATE WITH STANDBY ASSIST TO BATHROOM. PT WORKED WITH PHYSICAL THERAPY, AFTER RETURNING TO RECLINER PATIENT HAD EPISODE OF EMESIS, DR. RILEY NOTIFIED AND ORDERS FOR ZOFRAN GIVEN. ON RETURN TO ROOM N/V HAD RESOLVED. PT ENDORSES ITCHING ON HIS BACK AND ARMS, LOTION APPLIED T/O SHIFT. PT STARTED ON ATARAX TODAY, SEVERAL HOURS LATER PT ENDORSED SOME RELIEF OF SYMPTOMS. PT ATTEMPTED TO NAP IN THE AFTERNOON. THE PATIENT'S DAUGHTER RETURNED TO BEDSIDE IN THE EVENING, PROVIDED MEDICATION INFORMATION. EARLIER DG CHARGE NURSE WAS AT BEDSIDE AND WITNESSED THE PATIENT'S DAUGHTER PRESSING BUTTONS ON THE PATIENT'S MONITOR, THE DAIGHTER ENDORSED THAT SHE HAD PREVIOUSLY PRESSED THE ALARM SILENCE BUTTON. THE DAUGHTER WAS EDUCATED THAT IT WAS UNSAFE FOR HER TO TOUCH THE MONITOR AND INSTRUCTED TO CEASE THIS BEHAVIOR. THE PATIENT CONVERTED INTO ATRIAL FIB IN THE LOW 100s THIS EVENING, DR. RILEY NOTIFIED, PRN FOR HR AVAILABLE.
[2021-07-18 03:48] LABS: Hematocrit 28.8 % (37.0-53.0); Hemoglobin 9.4 g/dL (13.5-17.5)
[2021-07-18 04:12] LABS: Albumin, Blood 2.4 g/dL (3.4-5.0); Anion Gap 12 mmol/L (6-16); Blood Urea Nitrogen 115 mg/dL (8-24); Bun/Creatinine Ratio 29.6 (12.0-20.0); CO2, Blood 25 mmol/L (21-32); Calcium, Blood 8.3 mg/dL (8.5-10.1); Chloride, Blood 95 mmol/L (98-108); Creatinine, Blood 3.88 mg/dL (0.60-1.20); Glomerular Filtration Rate 15 (60-); Glucose, Blood 135 mg/dL (70-99); Potassium, Blood 3.4 mmol/L (3.5-5.5); Sodium, Blood 132 mmol/L (136-145)
--- NOTE | 2021-07-18 05:58 | NUR ---
SHIFT SUMMARY NO ACUTE CHANGES THIS SHIFT. PT A&OX4. PLEASANT. SP02>92% ON 1L NC. MILD COUGH, NON PRODUCTIVE. TELEMETRY SHOWS PT FLIPPING BETWEEN NSR AND AFIB/FLUTTER. HR 60'S-120'S THIS SHIFT. PT UP TO BATHROOM SEVERAL TIMES WITH FWW AND SBA. PT WENT ON 2 WALKS W/ NURSE, SON, FWW AND GAITBELT. PT C/O OF ITCHING, ATARAX GIVEN PER EMAR, WELL LOTION APPLIED BY TECH MULTIPLE TIMES. PT DID NOT SLEEP MUCH DURING NIGHT. STATED SLEPT ALL DAY. LAID IN BED WELL RECLINER TO TRY TO GET COMFORTABLE. C/O OF BACK PAIN. DID NOT WANT MEDICATION BUT RELIEVED WITH REPOSITIONING AND HEATING PAD. SON STAYED ALL NIGHT. CALL LIGHT IN REACH.
--- NOTE | 2021-07-18 16:10 | NUR ---
Spiritual care visit conducted. Pt is sleeping and son, Arden is bedside. He talks at length about the of his mom, the family dynamics and the deep Yarsanism luzma that his mom and dad have passed down to the youngest of family members. He talks about the struggles the family are having and the challenges associated with watching his dad have such a slow recovery. I listen empathically and provide companionship, grief support and a calming presence. Arden responds well and shows signs of an being encouraged in his luzma. I will continue to remain available to pt and family.
--- NOTE | 2021-07-18 18:32 | NUR ---
SHIFT SUMMARY: NO ACUTE CHANGES T/OUT SHIFT. PT CONTINUES A&Ox4. O2 SATS MAINTAINED >92% ON RA. TELEMETRY CONTINUES AND MONITORING SHOWS PT CONVERTING BETWEEN SIN RHYTHM AND AFIB, HR RANGING 60s-120s. PT C/O CHRONIC LOW BACK PAIN, ORDER OBTAINED FOR PRN TYLENOL, PT MEDICATED X2 THIS SHIFT AND REPORTED IMPROVEMENT OF SYMPTOMS. PT UP TO BEDSIDE OR CHAIR FOR MEALS, AMBULATES TO RESTROOM USING FWW AND SBA. PT DOES REPORT FEELING MORE TIRED TODAY. SON CONTINUES AT BEDSIDE W/MULTIPLE VISITORS T/OUT DAY. WILL CONTINUE TO MONITOR AND TREAT ACCORDINGLY UNTIL CHANGE OF SHIFT.
--- NOTE | 2021-07-18 20:32 | NUR ---
PT UPDATE PT C/O HE STARTING TO FEEL "GOUT COMING ON". PT DENIED PAIN. PT STATED HIS "BIG TOE JUST FEELS...LIKE IT FEELS BEFORE HE GETS GOUT". TOE DOES NOT APPEAR SWOLLEN. CALL PLACED TO MD DASILVA. MD DASILVA W/ ORDERS FOR COLCHICINE, SEE EMAR.
[2021-07-19 03:37] LABS: Hematocrit 29.3 % (37.0-53.0); Hemoglobin 9.8 g/dL (13.5-17.5)
[2021-07-19 03:56] LABS: Albumin, Blood 2.4 g/dL (3.4-5.0); Anion Gap 10 mmol/L (6-16); Blood Urea Nitrogen 107 mg/dL (8-24); Bun/Creatinine Ratio 27.8 (12.0-20.0); CO2, Blood 28 mmol/L (21-32); Calcium, Blood 8.1 mg/dL (8.5-10.1); Chloride, Blood 95 mmol/L (98-108); Creatinine, Blood 3.85 mg/dL (0.60-1.20); Glomerular Filtration Rate 15 (60-); Glucose, Blood 148 mg/dL (70-99); Phosphorus, Blood 4.1 mg/dL (2.5-4.9); Potassium, Blood 3.3 mmol/L (3.5-5.5); Sodium, Blood 133 mmol/L (136-145)
--- NOTE | 2021-07-19 05:38 | NUR ---
SHIFT SUMMARY NO ACUTE CHANGES. PT A&OX4. SP02>92% ON 1L NC/RA. TELEMETRY WENT BETWEEN AFIB/NSR. HR 90'S. PT C/O OF BACK PAIN, MEDICATED W/ TYLENOL PER EMAR WELL HEATING PAD AND FREQUENT REPOSITIONING. PT C/O OF ITCHING. MEDICATED W/ ATARAX PER EMAR AND APPLIED LOTION. CHRONIC LUCAS CATHETER DRAINED CLEAR YELLOW URINE TO GRAVITY. NO BM THIS SHIFT. PT WENT FOR WALKS UP AND DOWN HALLWAY WITH AID, FWW, AND GAITBELT. DID NOT SLEEP MUCH DURING NIGHT. SON IN ROOM ALL NIGHT. SON HAD SEVERAL QUESTIONS, SPOKE OFTEN FOR PATIENT OR OVER PATIENT. CALL LIGHT IN REACH.
--- NOTE | 2021-07-19 06:33 | NUR ---
update PT HAD ELEVATED BP THIS AM. CALL PLACED TO MD BUCK. MD BUCK WITH ORDERS TO GIVE 0900 HYDRALAZINE AT THIS TIME.
--- NOTE | 2021-07-19 06:50 | NUR ---
PT UPDATE DR ROMERO ROUNDING ON PT IN AM. MD ROMERO W/ VERBAL ORDERS TO DC FLUID RESTRICTION.
--- NOTE | 2021-07-19 08:30 | NUR ---
INITIAL ASSESSMENT: Patient is awake sitting up in bed and getting ready to eat breakfast. Son at the bedside. He is alert and oriented, a little flat. He reports 2/10 lower back pain he describes as a "dull ache." He does not want tyelnol at this time. HRR, he is currently SR in the 70s, he deos convert back and forth between SR and A-Fib. He denies CP or SOB at this time. LS Dim in the bases, biox WNL on RA. BT+. PPP. He has 2+ pitting edema to LLE and 1+ pitting edema to RLE. VSS, this AM. AM meds given with a sip of water. Patient denies other needs at this time. Call light in reach, will continue to monitor.
--- NOTE | 2021-07-19 10:52 | NUR ---
Update: Patient has been c/o continued lower back pain, he was medicated with Tylenol with out relief. Per the son he is tossing and turning in the bed and it not able to rest. Dr. Fay called, lidocaine patch placed. Patient ambulated in the hallway with his walker. He is back in bed now. He denies other needs at this time, call light in reach. Will continue to monitor.
--- NOTE | 2021-07-19 15:35 | NUR ---
UPDATE: PATIENT WAS ABLE TO GO ON A COUPLE OF WALKS TODAY, HE HAS BEEN A LITTLE BIT RESTLESS BUT WALKING SEEMS TO HELP. CO C/O BACK PAIN OR ITCHING AT THIS TIME. VSS. PO MEDS GIVEN. PATIENT HAS A BED ON THE MEDICAL FLOOR, 331. REPORT GIVEN TO THE RN. PATIENT HAS DAUGHTER AND GRANDDAUGHTER AT THE BEDSIDE. I ATTEMPED TO CONTACT ONE OF OUR IN HOUSE NOTARYS FOR THE FAMILY, NO ONE WAS AVAILABLE. I TALKED WITH THE FAMILY REGARDING THE VISITING HOURS AND THE AMOUNT OF VISITORS. THE FAMILY WOULD LIKE TO HAVE SOMEONE WITH THE PATIENT AT ALL TIMES TO ASSIST WITH CARE, WE TALKED ABOUT THE CURRENT VISITING POLICY. THEIR CONCERN ABOUT NOT BEING ABLE TO STAY THE NIGHT WAS COMMUNICATING WITH THE PHYSICIANS AND BEING INFORMED REGARDING HIS CARE. THEY WANT TO MAKE SURE THEY ARE INFORMED SO THEY CAN ASSIST/MAKE DECISIONS FOR THEIR FATHER. THEY STATED WHEN THEY ARE NOT HERE, DOCTORS ARE NOT CALLING REGARDING PLAN OF CARE OR UPDATES.
--- NOTE | 2021-07-19 18:24 | NUR ---
Patient was transferred from PCU at 1620. He was alert and orient. He was ambulatory and transferred from the stretcher to the bed. Patient also ambulated to the bathroom with walker. Patient family is present in room with him. Patient complained of pain and recvd Tylenol 650mg prn. He also complained of constipation and recvd scheduled Docusate. Cont to monitor while on the unit
--- NOTE | 2021-07-20 04:34 | NUR ---
SHIFT SUMMARY AOX4. DENIES N/V OR DYSPNEA. TELE AFIB HR 111-140'S, GAVE SCHEDULED 25MG TOPROL XL, 20MG HYDRALAZINE, 10MG ISOSORBIDE. WHEN HR SUSTAINED OVER 120 GAVE 12.5 MG PRN LOPRESSOR, 1 HR AFTER PRN HR STILL SUSTAINING 120-130'S. HOWEVER AT THIS TIME PT WAS REPORTING 9/10 L LOW BACK PAIN, "THE WORSE ITS BEEN," I HAD GIVEN TYLENOL & PLACED LIDOCAINE PATCH PREVIOUS, STILL NO RELIEF. INFORMED DR BOLTON & HE ORDERED A 1X DOSE 2.5 MG OXYCODONE, PT ABLE TO GET REST & STATED PAIN RELIEF. HR TRENDED TO LOW 100-115 ONCE PAIN LEVEL UNDER CONTROL. PT REPORTED CONSTIPATION, WAS GIVEN MIRALAX & PRUNE JUICE, STILL NO BM. CHRONIC LUCAS PATENT & DRAINING LIGHT YELLOW URINE. FAMILY MEMBER AT BEDSIDE T/O NIGHT TO ASSIST c CARE. CALL LIGHT IN REACH. WILL MONITOR.
[2021-07-20 06:26] LABS: Albumin, Blood 2.3 g/dL (3.4-5.0); Anion Gap 9 mmol/L (6-16); Blood Urea Nitrogen 97 mg/dL (8-24); CO2, Blood 29 mmol/L (21-32); Chloride, Blood 93 mmol/L (98-108); Creatinine, Blood 3.47 mg/dL (0.60-1.20); Glomerular Filtration Rate 17 (60-); Glucose, Blood 128 mg/dL (70-99); Magnesium, Blood 1.8 mg/dL (1.6-2.4); Phosphorus, Blood 3.3 mg/dL (2.5-4.9); Potassium, Blood 3.2 mmol/L (3.5-5.5); Sodium, Blood 131 mmol/L (136-145)
--- NOTE | 2021-07-20 17:58 | NUR ---
Patient was alert and orient, his affect was restricted and mood was congruent. He was compliant with all meds and treatments. He had no complaints of pain. His only complaint was "not having a BM" He was given MOM, prune juice and Dulcolax Supp. In addition he was given Miralax last evening and Colace. Patient had visitors in the room throughout the day. Patient was continent of bowel and bladder and ambulated in the hallway. Cont to monitor
--- NOTE | 2021-07-21 00:14 | NUR ---
NURSE NOTE: 2222- CHE IYER NOTIFIED OF PTS BP 102/44 PULSE 72, NO PARAMETERS WHEN TO HOLD BP MEDICATIONS IN CURRENT ORDERS. GAVE TELEPHONE ORDER TO HOLD 2100 SCHEDULED BP MEDS. GAVE ORDER TO ADD PARAMETERS TO SCHEDULED MEDICATION ORDER -HOLD BP MEDICATIONS IF SYSTOLIC BP <110. 0000- CHE IYER NOTIFED PT COMPLAINT OF CONTINUED SKIN ITCHING- ONGOING COMPLAINT, NO RELIEF POST ADMINISTRATION OF PO BENADRYL. GAVE TELEPHONE ORDER FOR 25MG PO HYDROXYZINE ONCE.
[2021-07-21 07:22] LABS: Albumin, Blood 2.3 g/dL (3.4-5.0); Anion Gap 8 mmol/L (6-16); Blood Urea Nitrogen 116 mg/dL (8-24); Bun/Creatinine Ratio 29.4 (12.0-20.0); CO2, Blood 30 mmol/L (21-32); Chloride, Blood 90 mmol/L (98-108); Creatinine, Blood 3.95 mg/dL (0.60-1.20); Glomerular Filtration Rate 15 (60-); Glucose, Blood 97 mg/dL (70-99); Magnesium, Blood 2.2 mg/dL (1.6-2.4); Phosphorus, Blood 2.8 mg/dL (2.5-4.9); Potassium, Blood 4.3 mmol/L (3.5-5.5); Sodium, Blood 128 mmol/L (136-145)
--- NOTE | 2021-07-21 11:34 | NUR ---
Received referral from nurse patient care representative (Julia Lopez) on 07/20/2021. Patient is to discharge with orders for home health and elected [facility]. Met with patient and patient's daughter (Gama Taylor) to further discuss the above. Patient's daughter is agreeable to the above. Discussed homebound status definition with patient's daughter. Patient's daughter verbalized understanding. Discussed what home health is vs what it is not (in home caregivers/housekeeping). Patient's daughter verbalized understanding. Discussed the next steps in the process of an initial assessment to determine frequency of visits. Again patient's daughter verbalized understanding. Offered a chance for patient's daughter to ask questions regarding the above of which there were none. At this time patient has no discharge orders entered. Will continue to monitor and follow for discharge. Marlen Segura Referral Liaison
--- NOTE | 2021-07-21 12:05 | NUR ---
NURSE NOTE PATIENT IS AMBULATING HALLWAYS WITH A FWW AND GAITBELT WITH FAMILY ASSISTING.
--- NOTE | 2021-07-21 16:13 | NUR ---
SHIFT SUMMARY PATIENT IS A ALERT AND ORIENTED X3-4. PATIENT IS PLEASANT AND COOPERATIVE WITH CARE. PATIENT HAS HAD NO ACUTE EVENTS THIS SHIFT. PATIENT HAS NOT HAD ANY COMPLAINTS OF SOB, NAUSEA, PAIN OR VOMITTING THIS SHIFT. PATIENT HAS BEEN WALKING EVERY TWO HOURS WITH FAMILY AROUND HALLWAYS WITH FWW AND GAITBELT. PATIENTS DAUGHTER IS STAYING IN ROOM WITH PATIENT AND HAS GIVEN PATIENT SHOWER TODAY. VITAL SIGNS REVIEWED. BED IN LOCKED AND LOWEST POSITION. CALL LIGHT IN PLACE. WILL MONITOR UNTIL SHIFT CHANGE.
--- NOTE | 2021-07-22 06:29 | NUR ---
SHIFT SUMMARY PT RESTED WELL DURING THE NIGHT, NO C/O PAIN OR ITCHING, UP WITH 1 ASSIST/WALKER, LUCAS PATENT WITH ADEQUATE URINE OUTPUT. B/P MEDS HELD AT 2100 PER PARAMETERS, VSS, AFIB NOTED ON TELE. LUNGS CLEAR, RICARDO ROOM AIR, NO RESP DISTRESS NOTED. ANTICIPATE D/C WHEN MEDICALLY STABLE.
[2021-07-22 08:11] LABS: Anion Gap 11 mmol/L (6-16); Blood Urea Nitrogen 120 mg/dL (8-24); Bun/Creatinine Ratio 32.8 (12.0-20.0); CO2, Blood 27 mmol/L (21-32); Calcium, Blood 8.1 mg/dL (8.5-10.1); Chloride, Blood 89 mmol/L (98-108); Creatinine, Blood 3.66 mg/dL (0.60-1.20); Glomerular Filtration Rate 16 (60-); Glucose, Blood 89 mg/dL (70-99); Magnesium, Blood 2.1 mg/dL (1.6-2.4); Phosphorus, Blood 2.8 mg/dL (2.5-4.9); Potassium, Blood 3.9 mmol/L (3.5-5.5); Sodium, Blood 127 mmol/L (136-145)
[2021-07-22] MEDS ORDERED: Vitamin D1000 UNI1 PO (12:42)
[2021-07-22] MEDS ORDERED: METO25ER PO (12:45)
[2021-07-22] MEDS ORDERED: BUME2 PO (12:48)
[2021-07-22] MEDS ORDERED: DOCU100 PO (12:51)
[2021-07-22] MEDS ORDERED: Calcium Acetat667 MG PO (12:51)
[2021-07-22] MEDS ORDERED: HYDHCL25 PO (12:52)
[2021-07-22] MEDS ORDERED: PAIN RELIEF1 EACH TOP (12:53)
[2021-07-22] MEDS ORDERED: MIRALAX17 GM PO (12:53)
[2021-07-22] MEDS ORDERED: KLOR-CON 1010 ME6 PO (12:55)
--- NOTE | 2021-07-22 16:35 | NUR ---
PT DISCHARGED FROM THE UNIT. IV REMOVED. DISCHARGE INSTRUCTIONS REVIEWED WITH PT AND FAMILY. LUCAS LEFT IN PLACE TWO WEEKS UNTIL DUE TO BE CHANGED. PT LEFT UNIT WHEEL CHAIR WITH FAMILY. MEDICATIONS FAXED TO [facility].
--- NOTE | 2021-07-22 17:14 | NUR ---
Patient has now discharged. Gathered all supporting documentation for referral (face sheet, face to face, med list, H&P, discharge summary, and most recent PT assessment) and sent to [facility] for review. No further interventions required. Marlen Segura Referral Liaison
== END 2021-07-22 16:18 | disposition home health service (06) | DRG 291 ==
LOC: ER 02:35 → PCU 05:55 → MEDS 07-19 15:58 → ENPENDDIS 07-22 10:21 → MEDS 07-22 16:18
PROVIDERS: Family Medicine; Internal Medicine; Internal Medicine Nephrology; Student in an Organized Health Care Education/Training Program; ADMIT Family Medicine
DX: I13.0 Hypertensive heart and chronic kidney disease with heart failure and stage 1 through stage 4 chronic kidney disease, or unspecified chronic kidney disease (principal); I50.43 Acute on chronic combined systolic (congestive) and diastolic (congestive) heart failure; J96.01 Acute respiratory failure with hypoxia; N17.9 Acute kidney failure, unspecified; E87.2 Acidosis; E87.1 Hypo-osmolality and hyponatremia; I48.20 Chronic atrial fibrillation, unspecified; N25.81 Secondary hyperparathyroidism of renal origin; N18.5 Chronic kidney disease, stage 5; I42.5 Other restrictive cardiomyopathy; Z28.21 Immunization not carried out because of patient refusal; Z20.822 Contact with and (suspected) exposure to COVID-19; G89.29 Other chronic pain; K59.00 Constipation, unspecified; M54.9 Dorsalgia, unspecified; C61 Malignant neoplasm of prostate; E83.39 Other disorders of phosphorus metabolism; E87.6 Hypokalemia; Z53.29 Procedure and treatment not carried out because of patient's decision for other reasons; E88.09 Other disorders of plasma-protein metabolism, not elsewhere classified; L29.9 Pruritus, unspecified; E79.0 Hyperuricemia without signs of inflammatory arthritis and tophaceous disease; R53.1 Weakness; L85.3 Xerosis cutis; N40.0 Benign prostatic hyperplasia without lower urinary tract symptoms; K76.1 Chronic passive congestion of liver; D63.1 Anemia in chronic kidney disease; E87.70 Fluid overload, unspecified; I25.2 Old myocardial infarction; Z98.42 Cataract extraction status, left eye; Z98.890 Other specified postprocedural states; Z79.01 Long term (current) use of anticoagulants; Z79.899 Other long term (current) drug therapy
CPT/HCPCS: 0241U; 36415; 71045; 71046; 74176; 78580; 80053; 80069; 81050; 82530; 82533; 83735; 83880; 84100; 84156; 84443; 84484; 84550; 85014; 85018; 85025; 85379; 85610; 87070; 87205; 93005; 93010; 93306; 93308; 93321; 94660; 94760; 96374; 97112; 97116; 97116-CQ; 97162; 97166; 97530; 97530-CQ; 97535; 99285-25; A9270; A9540; G0103; J0881; J2930

== ENCOUNTER → 2021-07-28 | Outpatient (CLI) | payer MEDICARE, OTHER ==
[~2021-07-28] MED LIST changes: +Calcium Acetat667 MG PO; +DOCU100 PO; +HYDHCL25 PO; +KLOR-CON 1010 ME6 PO; +MIRALAX17 GM PO; +PAIN RELIEF1 EACH TOP; +Vitamin D1000 UNI1 PO
[2021-07-28 19:59] LABS: Bilirubin, Urine Neg (Neg); Blood, Urine 2+ (Neg); Glucose Qualitative, Urine Neg (Neg); Ketones, Urine Neg (Neg); Leukocyte Esterase, Urine 2+ (Neg); Nitrite, Urine Neg (Neg); Protein, Urine Neg (Neg); Specific Gravity, Urine 1.005 (1.003-1.022); Urobilinogen, Urine NORM (Normal)
[2021-07-28 20:15] LABS: Appearance, Urine Clear (Clear); Color, Urine Yellow (P-Yellow)
[2021-07-28 20:22] LABS: Bacteria Few /hpf; Squamous Epithelial Cells Not Seen /hpf (Few)
== END | disposition home or self-care (01) ==
LOC: LAB HH 19:00
PROVIDERS: Internal Medicine Nephrology
DX: N39.0 Urinary tract infection, site not specified (principal)
CPT/HCPCS: 81001

== ENCOUNTER 2021-08-18 14:26 | Inpatient (IN) | payer MEDICARE, OTHER ==
[~2021-08-18] VITALS: Ht 175.3 cm; Wt 72.0 kg
[2021-08-18 15:21] LABS: BASOPHILS ABSOLUTE AUTO 0.01 K/mm3 (0.00-0.23); BASOPHILS PERCENT AUTO 0 % (0-2); EOSINOPHILS ABSOLUTE AUTO 0.03 K/mm3 (0.00-0.68); EOSINOPHILS PERCENT AUTO 0 % (0-6); Hematocrit 30.4 % (37.0-53.0); Hemoglobin 10.3 g/dL (13.5-17.5); IMMATURE GRAN ABSOLUTE AUTO 0.04 K/mm3 (0.00-0.10); IMMATURE GRAN PERCENT AUTO 1 % (0-1); LYMPHOCYTES ABSOLUTE AUTO 1.29 K/mm3 (0.84-5.20); LYMPHOCYTES PERCENT AUTO 16 % (21-46); MONOCYTES ABSOLUTE AUTO 0.96 K/mm3 (0.16-1.47); MONOCYTES PERCENT AUTO 12 % (4-13); Mean Corpuscular HGB 26.1 pg (26.0-34.0); Mean Corpuscular HGB Conc 33.9 g/dL (31.5-36.5); Mean Corpuscular Volume 77 fL (80-100); Mean Platelet Volume 9.3 fL (9.1-12.4); NEUTROPHILS ABSOLUTE AUTO 5.84 K/mm3 (1.96-9.15); NEUTROPHILS PERCENT AUTO 71 % (41-73); Platelet Count 291 K/mm3 (150-400); RDW Coefficient Variation 17.9 % (11.7-14.2); RDW Standard Deviation 49.2 fL (35.1-46.3); Red Blood Cell Count 3.94 M/mm3 (4.30-5.90); White Blood Cell Count 8.17 K/mm3 (4.00-11.30)
[2021-08-18 15:34] LABS: Magnesium, Blood 2.9 mg/dL (1.6-2.4)
[2021-08-18 15:42] LABS: Albumin, Blood 2.3 g/dL (3.4-5.0); Albumin/Globulin Ratio 0.5 (0.8-1.8); Bilirubin, Total 0.6 mg/dL (0.1-1.0); Bun/Creatinine Ratio 21.1 (12.0-20.0); Calcium, Blood 8.4 mg/dL (8.5-10.1); Creatinine, Blood 4.79 mg/dL (0.60-1.20); Globulin, Blood 4.8 g/dL (2.2-4.0); Total Protein, Blood 7.1 g/dL (6.4-8.2)
[2021-08-18 15:43] LABS: Potassium, Blood 6.3 mmol/L (3.5-5.5)
[2021-08-18 17:14] LABS: Percent Saturation 12.5 % (20.0-50.0)
--- NOTE | 2021-08-18 18:30 | NUR ---
ASSUMED CARE: PT ARRIVED FROM ED WITH SON AT BEDSIDE. TELE IN PLACE, SINUS DANIEL AT 52. PT HAD LEG BAG IN PLACE TO CHRONIC LUCAS. LARGER BAG SWITCHED TO REPLACE IT. ASKED PT ABOUT LUCAS PLACEMENT AND FAMILY STATED IT WAS ABOUT A MONTH AGO AT THE UROLOGIST'S OFFICE BUT THE LAST 2 TIMES THE UROLOGIST HAD TO REPLACE IT AND HAD A DIFFICULT TIME. FAMILY WAS NOT COMFORTABLE WITH CATHETER BEING CHANGED HERE. WILL ORDER BASELINE UA. CONSULTS CALLED FOR IR AND CARDIOLOGY. NPO SIGN IN FRONT OF ROOM AT THIS TIME. FAMILY AT BEDSIDE VISITING PT. NO ACUTE NEEDS AT THIS TIME.
[2021-08-18 19:36] LABS: Albumin, Blood 2.1 g/dL (3.4-5.0); Anion Gap 9 mmol/L (6-16); Blood Urea Nitrogen 100 mg/dL (8-24); CO2, Blood 24 mmol/L (21-32); Calcium, Blood 8.1 mg/dL (8.5-10.1); Chloride, Blood 84 mmol/L (98-108); Creatinine, Blood 4.76 mg/dL (0.60-1.20); Glomerular Filtration Rate 12 (60-); Glucose, Blood 77 mg/dL (70-99); Phosphorus, Blood 4.5 mg/dL (2.5-4.9); Potassium, Blood 4.7 mmol/L (3.5-5.5); Sodium, Blood 117 mmol/L (136-145)
[2021-08-18 20:46] LABS: Uric Acid, Blood 10.8 mg/dL (3.5-7.2)
[2021-08-18 20:58] LABS: Bun/Creatinine Ratio 21.3 (12.0-20.0); Calcium, Blood 8.4 mg/dL (8.5-10.1); Creatinine, Blood 4.79 mg/dL (0.60-1.20); Potassium, Blood 4.9 mmol/L (3.5-5.5)
[2021-08-19 05:26] LABS: Source, Urine Clean Catch
[2021-08-19 05:28] LABS: Bilirubin, Urine Neg (Neg); Blood, Urine 3+ (Neg); Glucose Qualitative, Urine Neg (Neg); Ketones, Urine Neg (Neg); Leukocyte Esterase, Urine 3+ (Neg); Nitrite, Urine Neg (Neg); Protein, Urine 2+ (Neg); Urobilinogen, Urine NORM (Normal); pH, Urine 6.5 (5.0-8.0)
--- NOTE | 2021-08-19 05:42 | NUR ---
SHIFT SUMMARY: PT IS A/OX4. TELE: /56. CHRONIC LUCAS CATH: YELLOW/CLEAR. HOLDING ELQUIS D/T POSSIBLE PERMACATH PLACEMENT TODAY, SCDs IN PLACE. PT IS A 1 PA, GAIT, FWW TO WALK AROUND ROOM/HALLWAY. UA COLLECTED, STILL NEED AN OCCULT. PT HAS CALL LIGHT WITHIN REACH AND WE'LL CONTINUE TO MONITOR.
[2021-08-19 05:51] LABS: BASOPHILS ABSOLUTE AUTO 0.04 K/mm3 (0.00-0.23); BASOPHILS PERCENT AUTO 1 % (0-2); EOSINOPHILS ABSOLUTE AUTO 0.04 K/mm3 (0.00-0.68); EOSINOPHILS PERCENT AUTO 1 % (0-6); Hematocrit 27.8 % (37.0-53.0); Hemoglobin 9.2 g/dL (13.5-17.5); IMMATURE GRAN ABSOLUTE AUTO 0.04 K/mm3 (0.00-0.10); IMMATURE GRAN PERCENT AUTO 1 % (0-1); LYMPHOCYTES ABSOLUTE AUTO 1.27 K/mm3 (0.84-5.20); LYMPHOCYTES PERCENT AUTO 19 % (21-46); MONOCYTES ABSOLUTE AUTO 0.89 K/mm3 (0.16-1.47); MONOCYTES PERCENT AUTO 13 % (4-13); Mean Corpuscular HGB 25.7 pg (26.0-34.0); Mean Corpuscular HGB Conc 33.1 g/dL (31.5-36.5); Mean Corpuscular Volume 78 fL (80-100); Mean Platelet Volume 9.6 fL (9.1-12.4); NEUTROPHILS ABSOLUTE AUTO 4.38 K/mm3 (1.96-9.15); NEUTROPHILS PERCENT AUTO 66 % (41-73); Platelet Count 238 K/mm3 (150-400); RDW Standard Deviation 44.8 fL (35.1-46.3); Red Blood Cell Count 3.58 M/mm3 (4.30-5.90); White Blood Cell Count 6.66 K/mm3 (4.00-11.30)
[2021-08-19 05:55] LABS: Appearance, Urine Hazy (Clear); Bacteria Few /hpf; Color, Urine Pale Yellow (P-Yellow); Squamous Epithelial Cells Rare /hpf (Few)
[2021-08-19 06:17] LABS: Albumin, Blood 1.9 g/dL (3.4-5.0); Albumin/Globulin Ratio 0.5 (0.8-1.8); Bilirubin, Total 0.5 mg/dL (0.1-1.0); Bun/Creatinine Ratio 21.2 (12.0-20.0); Calcium, Blood 8.1 mg/dL (8.5-10.1); Creatinine, Blood 4.67 mg/dL (0.60-1.20); Globulin, Blood 3.9 g/dL (2.2-4.0); Magnesium, Blood 2.9 mg/dL (1.6-2.4); Phosphorus, Blood 4.7 mg/dL (2.5-4.9); Potassium, Blood 5.2 mmol/L (3.5-5.5); Thyroid Stimulating Hormone 4.92 uIU/mL (0.360-4.800); Total Protein, Blood 5.8 g/dL (6.4-8.2)
--- NOTE | 2021-08-19 17:51 | NUR ---
DR ROMERO REQUEST STOP IVF AND SODIUM. DONE
--- NOTE | 2021-08-19 18:14 | NUR ---
PT PLEASANT AND JOKING TODAY. DID GO FOR PROCEDURE FOR DIALYSIS PERMCTH. PLACED. GRANDSON IN ROOM MOST OF DAY. PRESENTLY RECCEIVING DIALYSIS IN ROOM. BP ELEVATED, BUT CONTROLLED BY DIALYSIS. DR ROMERO STOPPED IVF AND SODIUM THIS MADHU. DR FULLER UPPED DIET TO RENAL.CARDIAC. NO NEW CONCERNS NOTED. BED IN LOW POSITION, CALL LITE IN REACH, CALLS APPROP
--- NOTE | 2021-08-20 04:57 | NUR ---
SUMMARY PT COMPLETED HID DIALYSIS AT BEGINNING OF NOC SHIFT. PT HAD NO ISSUES NOTED. PT NEW PERMACATH IS C/D/I. PT DENIES CX PAIN OR SOB. PT HAS BEEN SLEEPING T/OUT SHIFT. LUCAS DRAINING TO GRAVITY. PT CURRENTLY SLEEPING AND BREATHING EASY. CALL LIGHT IN REACH.
[2021-08-20 05:21] LABS: Hematocrit 28.3 % (37.0-53.0); Hemoglobin 9.1 g/dL (13.5-17.5)
[2021-08-20 05:40] LABS: Magnesium, Blood 2.6 mg/dL (1.6-2.4)
[2021-08-20 05:42] LABS: Albumin, Blood 1.8 g/dL (3.4-5.0); Anion Gap 6 mmol/L (6-16); Blood Urea Nitrogen 70 mg/dL (8-24); Bun/Creatinine Ratio 18.2 (12.0-20.0); CO2, Blood 27 mmol/L (21-32); Calcium, Blood 7.8 mg/dL (8.5-10.1); Chloride, Blood 95 mmol/L (98-108); Creatinine, Blood 3.85 mg/dL (0.60-1.20); Glomerular Filtration Rate 15 (60-); Glucose, Blood 101 mg/dL (70-99); Phosphorus, Blood 4.3 mg/dL (2.5-4.9); Potassium, Blood 4.4 mmol/L (3.5-5.5)
[2021-08-20 05:45] LABS: Sodium, Blood 128 mmol/L (136-145)
--- NOTE | 2021-08-20 09:46 | NUR ---
PT PLEASANT AND COOPERATIVE. PT FAMILY AT BEDSIDE. PT AWARE HE IS TO RECIEVE DIALYSIS TODAY. A/O X4. DENIES PAIN AT THIS TIME. ON TELE. PER ADMINISTRATIVE DIETITIAN SINUS BRADYCARDIA IN 50'S. NO MURMURS NOTED. HELD METOPROLOL THIS AM DUE TO HIM RECIEVING DIALYSIS. LUNGS CLEAR BILATERALLY. BREATHING IS EASY AND UNLABORED. PT STATES HE HAD A BOWEL MOVEMENT RECENTLY THAT WAS NORMAL. LUCAS IN PLACE, DRAINING TO GRAVITY. SLIGHT EDEMA PRESENT. CALL LIGHT IN PLACE, BED IN LOW POSITION, CALLS APPROPRIATLY.
--- NOTE | 2021-08-20 10:10 | NUR ---
PT PLEASANT COOP A/O 3 TALKTIVE, CONTINUES TO BE JOKING WITH STAFF. DENIES PAIN AT THIS TIME. H/R REG, NO MURMER NOTED. PER SOAKER MEAT NSR RATE 62. TRACE EDEMA NOTED BLE. LUNGS CLEAR RESP EASY, UNLABORED. ON R/A. NEW PERMCATH ACCESS CDI. BT X4 ABD SOFT NONTENDER. STATES BM YEST. VOIDS LUCAS CATH. DRAINING YELLOW FLUID . NO NEW CONCERNS NOTED. GETTING DIALYSIS AT THIS TIME. BED IN LOW POSITION, CALL LITE IN REACH, CALLS APPROP
--- NOTE | 2021-08-20 18:07 | NUR ---
PT BP 174/71. P 72 PER TELE RATE IS 73 CALLED KISHA IZAGUIRRE GIVE METOPROLOL NOW.
--- NOTE | 2021-08-20 18:35 | NUR ---
PT PLEASANT AND COOPERATIVE. DENIES PAIN. FAMILY AT BEDSIDE. ON TELE. PER RED CROSS EXECUTIVE DIRECTOR SINUS RHYTHM IN 70'S. NO MURMURS PRESENT. GAVE METOPROLOL EARLY PER FOR HIGH BLOOD PRESSURE. MORNING DOSE WAS HELD DUE TO DIALYSIS. LUNGS CLEAR BILATERALLY. BREATHING IS EASY AND UNLABORED. PT DID NOT HAVE A BOWEL MOVEMENT TODAY. LUCAS CATHETER IN PLACE, DRAINING TO GRAVITY. PT RECIEVED DIALYSIS TODAY, THEY TOOK OFF 1L. BED IN LOW POSITION, CALL LIGHT IN REACH, CALLS APPROPRIALTY.
[2021-08-21 04:34] LABS: Hematocrit 28.5 % (37.0-53.0); Hemoglobin 9.1 g/dL (13.5-17.5)
[2021-08-21 04:56] LABS: Albumin, Blood 1.9 g/dL (3.4-5.0); Anion Gap 7 mmol/L (6-16); Blood Urea Nitrogen 45 mg/dL (8-24); Bun/Creatinine Ratio 15.2 (12.0-20.0); CO2, Blood 28 mmol/L (21-32); Calcium, Blood 7.8 mg/dL (8.5-10.1); Chloride, Blood 95 mmol/L (98-108); Creatinine, Blood 2.96 mg/dL (0.60-1.20); Glomerular Filtration Rate 20 (60-); Glucose, Blood 114 mg/dL (70-99); Magnesium, Blood 2.3 mg/dL (1.6-2.4); Phosphorus, Blood 2.9 mg/dL (2.5-4.9); Potassium, Blood 4.1 mmol/L (3.5-5.5); Sodium, Blood 130 mmol/L (136-145)
--- NOTE | 2021-08-21 05:04 | NUR ---
SHIFT SUMMARY: PT IS A/0X4. TELE: SR/69 W/ PACs. HE WAS A 1 PA W/ FWW WHILE WALKING IN ROOM/HALLWAYS. LUCAS CATH IS PATENT W/ CLEAR & YELLOW OUTPUT. NO LE EDEMA NOTED. NO BM THIS SHIFT; OCCULT STOOL STILL NEEDED. PT SEEMS TO BE TOLERATING HD WELL. CALL LIGHT IS WITHIN REACH AND WE'LL CONTINUE TO MONITOR.
--- NOTE | 2021-08-21 08:00 | NUR ---
PT QUITE PLEASANT COOP TODAY. DENIES PAIN. A/O X3. DIALYSIS PERMACATH PORT ON RUCW. CDI. NO BLEEDING NOTED. NO SWELLING NOTED. PER DIALYSIS, NO DIALYSIS TODAY. H/R REG, NO MURMER NOTED. PER TELE STRIP, NSR AT 64. LUNGS CLEAR, RESP EASY, UNLABORED. ON R.A. BT X4 LAST BM THIS AM. STOOL SAMPLE SENT. VOIDS PER 1 SBA TO BATHROOM. BED IN LOW POSITIOIN, CALL LITE IN REACH, CALLS APPROP
[2021-08-21 10:34] LABS: Stool Occult Bld Immuno 1 Negative (NEGATIVE)
--- NOTE | 2021-08-21 16:49 | NUR ---
PT QUITE PLEASANT COOP TODAY. NO C/O PAIN. D/C PAIN PATCH NOT NEEDING. DR WAS ASKED TO REVIEW HIS HEART MEDS TO SEE IF H/R TOO LOW . NO DIALYSIS TODAY. PT SBA TO BATHROOM. NO NEW CONCERNS NOTED TODAY. BED IN LOW POSITIOIN, CALL LITE IN REACH, CALLS APPROP
[2021-08-22 00:08] LABS: HBSAG SCREEN Negative (Negative); HCV AB <0.1 (0.0-0.9); HEP A AB, IGM Negative (Negative); HEP B CORE AB, IGM Negative (Negative)
[2021-08-22 04:33] LABS: Hematocrit 29.3 % (37.0-53.0); Hemoglobin 9.2 g/dL (13.5-17.5)
[2021-08-22 05:05] LABS: Albumin, Blood 1.9 g/dL (3.4-5.0); Anion Gap 7 mmol/L (6-16); Blood Urea Nitrogen 50 mg/dL (8-24); Bun/Creatinine Ratio 14.7 (12.0-20.0); CO2, Blood 29 mmol/L (21-32); Chloride, Blood 92 mmol/L (98-108); Creatinine, Blood 3.41 mg/dL (0.60-1.20); Glomerular Filtration Rate 17 (60-); Glucose, Blood 114 mg/dL (70-99); Magnesium, Blood 2.3 mg/dL (1.6-2.4); Potassium, Blood 3.9 mmol/L (3.5-5.5); Sodium, Blood 128 mmol/L (136-145)
--- NOTE | 2021-08-22 05:18 | NUR ---
SHIFT SUMMARY: PT IS A/OX4. TELE: SR/61. LANCE SEBASTIAN IS PATENT C/ CLEAR & YELLOW OUTPUT. PT IS A SBA TO BR AND WALKING HALLWAYS. CALL LIGHT IS WITHIN REACH AND WE'LL CONTINUE TO MONTIOR.
--- NOTE | 2021-08-22 18:17 | NUR ---
SHIFT SUMMARY A/O X4, VSS, TOLERATING PO, AMBULATES c GB/FWW AND 1 PERSON SBA, DIALYSIS TODAY. NO COMPLAINTS FROM PATIENT WHO IS ABLE TO MAKE HIS NEEDS KNOWN. NO ACUTE EVENTS THIS SHIFT, CALL LIGHT IN REACH, WILL CTM AND REPORT TO ONCOMING NOC RN.
--- NOTE | 2021-08-23 04:24 | NUR ---
SHIFT SUMMARY: PT IS A/OX4. TELE: SR/76. LANCE IS PATENT W/ CLEAR & YELLOW OUTPUT. PATIENT DID RECEIVE HD 08/22 VIA PERMACATH. HE SEEMS TO BE MORE WEAK THIS NOC SHIFT, BUT HAS WALKED THE HALLWAY WITH A SBA/FWW A FEW TIMES. FAMILY HAS BEEN AT BEDSIDE THIS ENTIRE SHIFT. PT'S CALL LIGHT IS WITHIN REACH AND WE'LL CONTINUE TO MONITOR THE REST OF THE SHIFT.
[2021-08-23 05:01] LABS: Hematocrit 31.7 % (37.0-53.0); Hemoglobin 9.8 g/dL (13.5-17.5)
[2021-08-23 05:41] LABS: Anion Gap 6 mmol/L (6-16); Blood Urea Nitrogen 37 mg/dL (8-24); Bun/Creatinine Ratio 12.5 (12.0-20.0); CO2, Blood 30 mmol/L (21-32); Calcium, Blood 8.3 mg/dL (8.5-10.1); Chloride, Blood 95 mmol/L (98-108); Creatinine, Blood 2.95 mg/dL (0.60-1.20); Glomerular Filtration Rate 20 (60-); Glucose, Blood 104 mg/dL (70-99); Magnesium, Blood 2.2 mg/dL (1.6-2.4); Phosphorus, Blood 2.7 mg/dL (2.5-4.9); Potassium, Blood 4.5 mmol/L (3.5-5.5); Sodium, Blood 131 mmol/L (136-145)
--- NOTE | 2021-08-23 15:43 | NUR ---
Patient tells me about his upcoming procedure and how he is excited to get it over with so he can move on to healing and hopefully find a spot for out patient dialysis. Patient then shares about the miracles he has seen in life and his belief for miracles yet to come. I provide therapeutic listening, spiritual support and prayer. Patient responds well and shows signs of increased peace as he waits for surgery. I will continue to pt and and family.
--- NOTE | 2021-08-23 16:58 | NUR ---
SHIFT SUMMARY PT A&OX4, VSS, TELE NSR 63, AMB FWW/GB, UP TO CHAIR, CARDIOLOGY CONSULTED BY DR CHACKO. PT WENT FOR ANGIO AND TRANSFERRED TO PCU 5 POST OP. FAMILY/SON ASSISTED WITH TRANSFER OF ALL PERSONAL ITEMS, AND SHOWED TO NEW ROOM. REPORT PROVIDED TO TIA RN.
--- NOTE | 2021-08-23 19:14 | NUR ---
Shift Summary Pt received from heart center. TR band in place- site is bruised with swelling. MD at bedside evaluated, instructed to continue to monitor. Remains A&Ox4. VSS. No c/o pain. Afebrile. FC maintained. No BM. Tolerating current diet. Frequent rounds to ensure pt safety. Pt repositioned q2hrs and pressure points offloaded to prevent pressure ulcers. No apparent distress noted at this time. Will continue to monitor until transfer of care to oncoming RN.
[2021-08-24 04:16] LABS: Hematocrit 31.2 % (37.0-53.0); Hemoglobin 9.7 g/dL (13.5-17.5)
[2021-08-24 04:44] LABS: Albumin, Blood 1.9 g/dL (3.4-5.0); Anion Gap 8 mmol/L (6-16); Blood Urea Nitrogen 47 mg/dL (8-24); CO2, Blood 28 mmol/L (21-32); Calcium, Blood 8.2 mg/dL (8.5-10.1); Chloride, Blood 93 mmol/L (98-108); Creatinine, Blood 3.36 mg/dL (0.60-1.20); Glomerular Filtration Rate 17 (60-); Glucose, Blood 94 mg/dL (70-99); Magnesium, Blood 2.3 mg/dL (1.6-2.4); Phosphorus, Blood 3.3 mg/dL (2.5-4.9); Potassium, Blood 4.4 mmol/L (3.5-5.5); Sodium, Blood 129 mmol/L (136-145)
--- NOTE | 2021-08-24 04:51 | NUR ---
SHIFT SUMMARY PT ALERT AND ORIENTED X4 THROUGHOUT SHIFT. PT PLESANT AND COOPERATIVE. FOLLOWS DIRECTIONS AND RESPONDS APPROPRIATELY TO QUESTIONS. VITALS SIGNS REMAINED CONSISTENT THROUGHOUT SHIFT WITH SYSTOLIC BLOOD PRESSURE REMAINING IN RANGE OF 148 - 160'S WTIH MAP OF 86, 02 SATURATION REMAINED AT OR GREATER THAN 94% ON RA. PT IS ON TELE WITH RHYTHM OF SINUS BRADYCARDIA AND RATE RANGING FROM 50'S - 60'S. TR BAND DEFLATED PER PROTOCOL, NO BLEEDING OR SWELLING. TR BAND REMOVED AT 0500 AND IS FULLY RECOVERED. PT HAS DEPENDENT EDEMA BILATERLLAY IN UPPER EXTREMITIES BELOW THE ELBOW. PT HAD A SMALL BM, STOOL WAS GREEN/BROWN, SOFT AND FORMED. PT REQUESTED TO GET OUT OF BED DUE TO "BEING IN BED TOO LONG AND FEELING STIFF". PT WAS AMBULATED USING GAIT BELT AND WALKER APPROX. 50 FT DOWN HALLWAY. PT IS SBA. PT TOLERATED AMBULATING WELL AND GAIT WAS FAIR. PT HAS LUCAS CATHETER THAT IS DRAINING TO GRAVITY. URINE IS CLEAR AND YELLOW. PT VOIDED 400 MLS THROUGHOUT SHIFT. PT DOES NOT REPORT ANY PAIN. PT DENIES CHEST PAIN OR PRESSURE. WILL CONTINUE TO MONITOR. CALL LIGHT IS WITHIN REACH AND BED IS IN THE LOWEST POSITION.
[2021-08-24] MEDS ORDERED: NAC600 MG PO (13:09)
--- NOTE | 2021-08-24 13:43 | NUR ---
Discharge Summary Pt discharged home. HD completed today and scheduled for tomorrow, family aware. Discharge education provided to pt and family, both verbalized understanding. All belongings sent home with family. No apparent distress noted during time of discharge.
--- NOTE | 2021-08-25 10:29 | NUR ---
Patient is a [facility] patient who was transferred to [facility] on 08/18/2021 due to hyponatremia. Patient has now discharged with resumption of home health orders. Gathered supporting documentation for resumption (face sheet, discharge order, med list, and H&P) and faxed to [facility] for review. No further interventions required. Marlen Segura Referral Liaison
== END 2021-08-24 13:36 | disposition home or self-care (01) | DRG 673 ==
LOC: ER 14:26 → MEDS 17:03 → ER 17:40 → MEDS 17:59 → PCU 08-23 15:43
PROVIDERS: Internal Medicine Nephrology; Physician Assistant; ADMIT Internal Medicine
PROC: 0JH63XZ Insertion of Tunneled Vascular Access Device into Chest Subcutaneous Tissue and Fascia, Percutaneous Approach (ICD-10-PCS; principal; 2021-08-19)
PROC: 02HV33Z Insertion of Infusion Device into Superior Vena Cava, Percutaneous Approach (ICD-10-PCS; 2021-08-19)
PROC: B5181ZA Fluoroscopy of Superior Vena Cava using Low Osmolar Contrast, Guidance (ICD-10-PCS; 2021-08-19)
PROC: 5A1D70Z Performance of Urinary Filtration, Intermittent, Less than 6 Hours Per Day (ICD-10-PCS; 2021-08-19)
PROC: 4A023N7 Measurement of Cardiac Sampling and Pressure, Left Heart, Percutaneous Approach (ICD-10-PCS; 2021-08-23)
PROC: B2111ZZ Fluoroscopy of Multiple Coronary Arteries using Low Osmolar Contrast (ICD-10-PCS; 2021-08-23)
DX: N17.9 Acute kidney failure, unspecified (principal); G92.8 Other toxic encephalopathy; J18.9 Pneumonia, unspecified organism; I13.2 Hypertensive heart and chronic kidney disease with heart failure and with stage 5 chronic kidney disease, or end stage renal disease; E87.1 Hypo-osmolality and hyponatremia; I48.20 Chronic atrial fibrillation, unspecified; E87.2 Acidosis; I50.42 Chronic combined systolic (congestive) and diastolic (congestive) heart failure; N18.6 End stage renal disease; N25.81 Secondary hyperparathyroidism of renal origin; N13.30 Unspecified hydronephrosis; I48.0 Paroxysmal atrial fibrillation; Z51.5 Encounter for palliative care; I25.10 Atherosclerotic heart disease of native coronary artery without angina pectoris; D63.1 Anemia in chronic kidney disease; K21.9 Gastro-esophageal reflux disease without esophagitis; K59.00 Constipation, unspecified; Z99.2 Dependence on renal dialysis; I25.2 Old myocardial infarction; Z87.440 Personal history of urinary (tract) infections; Z85.46 Personal history of malignant neoplasm of prostate; Z79.01 Long term (current) use of anticoagulants; Z79.899 Other long term (current) drug therapy
CPT/HCPCS: 36415; 36558; 71045; 74150; 76770; 76937; 77001; 80048; 80053; 80069; 80074; 81001; 82274; 82533; 82728; 83540; 83550; 83735; 83880; 83930; 84100; 84145; 84295; 84443; 84484; 84550; 85014; 85018; 85025; 86317; 87077; 87086; 87186; 93005; 93010; 93458; 96374; 96375; 99152; 99153; 99284-25; A9270; C1750; C1769; C1887; C1894; J0456; J0610; J0696; J0881; J1644; J1815; J2250; J3010; J7030; J7040; J7050; J7060; Q9967

== ENCOUNTER 2021-08-29 08:25 | Emergency (ER) | payer MEDICARE, OTHER ==
[~2021-08-29] VITALS: Ht 177.8 cm; Wt 77.1 kg
[~2021-08-29 08:25] MED LIST changes: +NAC600 MG PO
[2021-08-29 11:12] LABS: BASOPHILS ABSOLUTE AUTO 0.06 K/mm3 (0.00-0.23); BASOPHILS PERCENT AUTO 1 % (0-2); EOSINOPHILS ABSOLUTE AUTO 0.08 K/mm3 (0.00-0.68); EOSINOPHILS PERCENT AUTO 1 % (0-6); Hematocrit 29.7 % (37.0-53.0); Hemoglobin 9.4 g/dL (13.5-17.5); IMMATURE GRAN ABSOLUTE AUTO 0.05 K/mm3 (0.00-0.10); IMMATURE GRAN PERCENT AUTO 1 % (0-1); LYMPHOCYTES ABSOLUTE AUTO 1.12 K/mm3 (0.84-5.20); LYMPHOCYTES PERCENT AUTO 16 % (21-46); MONOCYTES ABSOLUTE AUTO 0.85 K/mm3 (0.16-1.47); MONOCYTES PERCENT AUTO 12 % (4-13); Mean Corpuscular HGB 25.4 pg (26.0-34.0); Mean Corpuscular HGB Conc 31.6 g/dL (31.5-36.5); Mean Corpuscular Volume 80 fL (80-100); Mean Platelet Volume 9.2 fL (9.1-12.4); NEUTROPHILS ABSOLUTE AUTO 5.04 K/mm3 (1.96-9.15); NEUTROPHILS PERCENT AUTO 70 % (41-73); Platelet Count 268 K/mm3 (150-400)
[2021-08-29 11:23] LABS: Albumin/Globulin Ratio 0.5 (0.8-1.8); Bilirubin, Total 0.6 mg/dL (0.1-1.0); Bun/Creatinine Ratio 13.8 (12.0-20.0); Calcium, Blood 8.2 mg/dL (8.5-10.1); Creatinine, Blood 3.4 mg/dL (0.60-1.20); Globulin, Blood 4.1 g/dL (2.2-4.0); Potassium, Blood 4.5 mmol/L (3.5-5.5); Total Protein, Blood 6.1 g/dL (6.4-8.2)
== END 2021-08-29 13:19 | disposition home or self-care (01) ==
LOC: ER 08:25
PROVIDERS: Emergency Medicine
DX: I13.2 Hypertensive heart and chronic kidney disease with heart failure and with stage 5 chronic kidney disease, or end stage renal disease (principal); I50.9 Heart failure, unspecified; N18.6 End stage renal disease; I48.91 Unspecified atrial fibrillation; Z79.01 Long term (current) use of anticoagulants; Z99.2 Dependence on renal dialysis; Z79.899 Other long term (current) drug therapy
CPT/HCPCS: 71045; 80053; 83880; 84484; 85025

== ENCOUNTER → 2021-09-13 | Outpatient (CLI) | payer MEDICARE, OTHER | LOC: LAB 10:51 → LAB SHORT 10:51 | DX: R31.9 Hematuria, unspecified (principal) | CPT/HCPCS: 87077; 87086; 87186 ==

== ENCOUNTER → 2021-10-20 | Outpatient (CLI) | payer MEDICARE, OTHER | END | disposition home or self-care (01) | LOC: LAB SHORT 15:07 → LAB 15:07 | DX: R31.0 Gross hematuria (principal) | CPT/HCPCS: 87077; 87086; 87186 ==

== ENCOUNTER 2021-10-23 18:19 | Inpatient (IN) | payer MEDICARE, OTHER ==
[~2021-10-23] VITALS: Ht 177.8 cm; Wt 65.2 kg
[2021-10-23 20:42] LABS: BASOPHILS ABSOLUTE AUTO 0.03 K/mm3 (0.00-0.23); BASOPHILS PERCENT AUTO 0 % (0-2); EOSINOPHILS ABSOLUTE AUTO 0.42 K/mm3 (0.00-0.68); EOSINOPHILS PERCENT AUTO 5 % (0-6); Hematocrit 23.4 % (37.0-53.0); Hemoglobin 7.5 g/dL (13.5-17.5); IMMATURE GRAN ABSOLUTE AUTO 0.05 K/mm3 (0.00-0.10); IMMATURE GRAN PERCENT AUTO 1 % (0-1); LYMPHOCYTES ABSOLUTE AUTO 0.81 K/mm3 (0.84-5.20); LYMPHOCYTES PERCENT AUTO 9 % (21-46); MONOCYTES PERCENT AUTO 10 % (4-13); Mean Corpuscular HGB 24.8 pg (26.0-34.0); Mean Corpuscular HGB Conc 32.1 g/dL (31.5-36.5); Mean Corpuscular Volume 77 fL (80-100); Mean Platelet Volume 9.1 fL (9.1-12.4); NEUTROPHILS ABSOLUTE AUTO 6.89 K/mm3 (1.96-9.15); NEUTROPHILS PERCENT AUTO 76 % (41-73); Platelet Count 315 K/mm3 (150-400); RDW Coefficient Variation 17.3 % (11.7-14.2); Red Blood Cell Count 3.03 M/mm3 (4.30-5.90)
[2021-10-23 20:58] LABS: Bun/Creatinine Ratio 13.8 (12.0-20.0); Calcium, Blood 8.4 mg/dL (8.5-10.1); Creatinine, Blood 5.2 mg/dL (0.60-1.20); Potassium, Blood 4.2 mmol/L (3.5-5.5)
--- NOTE | 2021-10-24 05:46 | NUR ---
AT 0100, PT ADMITTED TO ROOM 337 FROM ER. PT ON RA. CBI ONGOING AT THIS TIME. FAMILY BY PT'S SIDE. REPORT RECEIVED FROM ER NURSE, KURTIS.
--- NOTE | 2021-10-24 05:49 | NUR ---
AT 0305, PT C/O PAIN/PRESSURE ABOVE PUBIC AREA. CBI STOPPED. 3-LUMEN WAY LUCAS CATHETER IRRIGATED WITH 50 CC OF IRRIGATION SOLUTION X3. NO OUTPUT OR BLOOD CLOTS NOTED AFTER IRRIGATION. AT 031, MELT ROOM OPERATOR CALLED [facility]. THEY TRIED TO FLUSH BLOOD CLOTS OUT. NO BLOOD CLOTS OR IRRIGATION SOLUTION RETURN NOTED FOR A 5 MINUTES. AT 033, MELT ROOM OPERATOR NOTIFIED PROVIDER, DR EASTMAN WHO ORDERED TO " STOP IRRIGATION ALL TOGETHER AND SEE IF PATIENT HAD ANY OUTPUT FOR 15-20. AT 0350, 30-40 ML OF RED BLOOD NOTED IN LUCAS BAG. AT 040, PROVIDER INFORMED. PROVIDER SAID. "LET'S JUST STOP PUTTING ANY MORE IRRIGATION SOLUTION OR MANUALLY IRRIGATING AND I WILL TRY TO GET A BED FOR HIM IN ANOTHER FACILITY. PT HAS NOT REPORTED ANY PAIN TO THIS TIME: 624.
[2021-10-24 05:53] LABS: Hematocrit 21.7 % (37.0-53.0); Hemoglobin 6.8 g/dL (13.5-17.5); Mean Corpuscular HGB 24.5 pg (26.0-34.0); Mean Corpuscular HGB Conc 31.3 g/dL (31.5-36.5); Mean Corpuscular Volume 78 fL (80-100); Mean Platelet Volume 9.2 fL (9.1-12.4); Platelet Count 325 K/mm3 (150-400); RDW Coefficient Variation 17.3 % (11.7-14.2); RDW Standard Deviation 49.2 fL (35.1-46.3); Red Blood Cell Count 2.77 M/mm3 (4.30-5.90); White Blood Cell Count 10.22 K/mm3 (4.00-11.30)
[2021-10-24 06:23] LABS: Bun/Creatinine Ratio 13.7 (12.0-20.0); Calcium, Blood 8.4 mg/dL (8.5-10.1); Creatinine, Blood 5.61 mg/dL (0.60-1.20); Potassium, Blood 4.2 mmol/L (3.5-5.5)
--- NOTE | 2021-10-24 06:26 | NUR ---
A&OX4. V/S WNL. BLADDER IRRIGATION STOPPED PER PROVIDER'S ORDER DUE TO INCREASING INGUINAL PAIN/PRESSURE AND NO IRRIGATION SOLUTION OUTPUT. 1 LARGE BLOOD CLOT IRRIGATED AN HOUR PRIOR TO IRRIGATION/OUTPUT STOPPED FLOWING OUT. NO PAIN REPORTED SINCE BLADDER IRRIGATION STOPPED. PT HAD A MEAL UPON ADMISSION. SCD'S IN PLACE AND WORKING. 3-LUMEN FC IN SITU AND DRAINING A SMALL AMOUNT OF RED BLOOD. PROVIDER AWARE. O2 @2LPM VIA N/C. PROVIDER AWAITING ON BED TO TRANSFER PATIENT OUT. BEDREST. DYALISIS AT 4PM TODAY. IV TO L) WRIST AND DYALISIS CATH TO R) CHEST. BLADDER SCANNED AT 178 ML RECORDED. WILL CONTINUE TO MONITOR.
--- NOTE | 2021-10-24 06:36 | NUR ---
AT 0625, CAN STRIPER NOTIFIED PROVIDER PT URINE: RED BLOOD OUTPUT HAD INCREASED TO 70-80 ML. PROVIDER ORDERED TO START BACK UP BLADDER IRRIGATION. AT 0635, CBI RE-STARTED SLOWLY PER PROVIDER'S ORDER. PROVIDER ALSO NOTIFIED OF PT'S HEMOGLOBIN: 6.8. NO FURTHER ORDERS.
--- NOTE | 2021-10-24 08:00 | NUR ---
PT HAD CLOTS IN URINE. DEBURRING AND TOOLING MACHINE OPERATOR FLUSHED AND REGAINED PATENCY. IRRIGATION CONTINUES TO FLOW AT SLOW STEADY RATE IN AN OUT COLOR CONTINUES TO BE RED. WITH CLOTS.
--- NOTE | 2021-10-24 09:00 | NUR ---
PT PLEASANT A/O X3 TALKATIVE. STATES LUCAS FLOWING BETTER NOW. STILL NEEDING TO ADJUST REGULARLY . CONCERNED FOR CLOTS. IS RED. CLOTS. IRRIGATION FLOWING SMOOTHLY MEDIUM RATE IS OUTPUT SAME DRIP RATE IMPUT. H/R IRREG, FINE MURMUR NOTED. NO TELE. LUNGS CLEAR, RESP EASY, UNLABORD. ON R/A. BT X4 LAST BM YEST PER PT. HE DENIES PAIN AT THIS TIME. BED IN LOW POSITION, CALL LITE IN REACH, CALLS APPROP. DAUGHTER IN ROOM AT THIS TIME.
[2021-10-24 12:51] LABS: Hematocrit 24.1 % (37.0-53.0); Hemoglobin 7.8 g/dL (13.5-17.5)
--- NOTE | 2021-10-24 16:17 | NUR ---
Upon receiving a referral for spiritual care. I visit pt. Family is bedside. They explain about pt's complicated symptoms and the medical plan of care moving forward. Pt's dtr. Deleta, asks me to pray for pt and for some of the issues to resolve, a bed to become available and for their spirits to be lifted. I gladly provide prayer. Pt and family respond well and state that spiritual care care is like a ray of sunshine and that they do feel better. I will continue to remain available to patient and family.
[2021-10-24 16:46] LABS: Hematocrit 24.3 % (37.0-53.0); Hemoglobin 7.9 g/dL (13.5-17.5)
--- NOTE | 2021-10-24 17:17 | NUR ---
PT REMAINS ON BLADDER IRRIGATION TODAY. ABOUT 3 BAGS OF 3000 RUN THRU TODAY. CLOTS SLOWING, COLOR SLIGHTLY IMPROVED. LESS CLOTS. DENIES PAIN. OCCATIONAL BLADDER SPASMS. FAMILY AT BEDSIDE ALL MOST ALL TIMES. DID GO TO DIALYSIS TODAY. 1 UNIT PRBC GIVEN IN DIALYSIS.. NO NEW CONCERNS NOTED. H/H IMPROVED TO 7.8/21.1. CONTINUE TO MONITOR. BED IN LOW POSITION, CALL LITE IN REACH, CALLS APPROP
--- NOTE | 2021-10-24 17:24 | NUR ---
BLADDER IRRIGATION. OF THIS TIME TODAY, APPROX 3 3000 CC BAGS GIVEN FOR IRRIGATIONS. CLOTS LESSENING, COLOR SLIGHTLY IMPROVING
--- NOTE | 2021-10-25 04:40 | NUR ---
A&OX4. V/S WNL. O2 @2LPM VIA NC AT HS. IV TO L) WRIST & PERMACATH TO R) CHEST. DYALISIS 3 TIMES A WEEK: MONDAYS, WEDNESDAYS & FRIDAYS. CBI ONGOING AND NO MANUAL IRRIGATION REQUIRED. NO BLOOD CLOTS NOTED THIS SHIFT. UP NEXT TO BED TO STRETCH A COUPLE OF TIMES WITH FWW,1-ASSIST. 3-WAY LUMEN LUCAS CATHETER IN SITU AND DRAINING LARGE AMOUNTS OF RED URINE/IRRIGATION SOLUTION. REFER TO INTAKE/OUTPUT FOR DETAILS. LUCAS BAG EMPTIED Q1-2 HRS. CONTINENT OF BOWEL. NO PAIN/PRESSURED REPORTED THIS SHIFT. WILL CONTINUE TO MONITOR.
[2021-10-25 05:01] LABS: Hematocrit 23.5 % (37.0-53.0); Hemoglobin 7.4 g/dL (13.5-17.5)
[2021-10-25 05:27] LABS: Albumin, Blood 2.1 g/dL (3.4-5.0); Anion Gap 7 mmol/L (6-16); Blood Urea Nitrogen 56 mg/dL (8-24); Bun/Creatinine Ratio 12.2 (12.0-20.0); CO2, Blood 33 mmol/L (21-32); Calcium, Blood 8.2 mg/dL (8.5-10.1); Chloride, Blood 93 mmol/L (98-108); Creatinine, Blood 4.58 mg/dL (0.60-1.20); Glomerular Filtration Rate 12 (60-); Glucose, Blood 99 mg/dL (70-99); Magnesium, Blood 2.1 mg/dL (1.6-2.4); Phosphorus, Blood 4.4 mg/dL (2.5-4.9); Potassium, Blood 4.2 mmol/L (3.5-5.5); Sodium, Blood 133 mmol/L (136-145)
[2021-10-25 10:30] LABS: Hematocrit 25.7 % (37.0-53.0); Hemoglobin 8.1 g/dL (13.5-17.5)
--- NOTE | 2021-10-25 18:07 | NUR ---
SHIFT SUMMARY PT A&OX4 AND IN PLEASENT MOOD T/O SHIFT. FAMILY @ BEDSIDE T/O SHIFT. BLADDER IRRIGATING VIA TRIPLE LUMEN LUCAS. C/O BACK PAIN-MEDICATED PER EMAR, REPOSITIONED. URINE APPEARS TO BE RELAY DISPATCHER T/O SHIFT. VSS. CALL LIGHT W/IN REACH. SBA WITH AMBULTION, STEADY GAIT.
[2021-10-25 21:40] LABS: Hematocrit 22.9 % (37.0-53.0); Hemoglobin 7.4 g/dL (13.5-17.5)
--- NOTE | 2021-10-26 04:30 | NUR ---
SHIFT SUMMARY PATIENT AXOX 4 AND ONE ASSIST W/FWW TO BR. BLADDER IRRIGATION VIA TRIPLE LUMEN LUCAS. DRAINING RED URINE/IRRIGATION SOLUTION. ON 2L O2 NC FOR SLEEP. VSS/AFEBRILE. DENIES PAIN, SOB, AND N/V. PIV REMAINS INTACT. PERMA CATH RIGHT CHEST INTACT. COOPERATIVE WITH CARE. CALL LIGHT IN REACH. BED IN LOWEST POSITION. WILL CONTINUE TO MONITOR UNTIL DAY SHIFT NURSE ASSUMES CARE.
[2021-10-26 05:40] LABS: Hematocrit 24.7 % (37.0-53.0); Hemoglobin 7.7 g/dL (13.5-17.5)
[2021-10-26 06:18] LABS: Magnesium, Blood 2.3 mg/dL (1.6-2.4)
[2021-10-26 06:21] LABS: Albumin, Blood 2.2 g/dL (3.4-5.0); Anion Gap 12 mmol/L (6-16); Blood Urea Nitrogen 75 mg/dL (8-24); Bun/Creatinine Ratio 13.6 (12.0-20.0); CO2, Blood 28 mmol/L (21-32); Calcium, Blood 8.6 mg/dL (8.5-10.1); Chloride, Blood 87 mmol/L (98-108); Creatinine, Blood 5.53 mg/dL (0.60-1.20); Glomerular Filtration Rate 9 (60-); Glucose, Blood 127 mg/dL (70-99); Phosphorus, Blood 5.7 mg/dL (2.5-4.9); Sodium, Blood 127 mmol/L (136-145)
[2021-10-26 10:41] LABS: Hematocrit 22.7 % (37.0-53.0); Hemoglobin 7.4 g/dL (13.5-17.5)
--- NOTE | 2021-10-26 19:33 | NUR ---
SHIFT SUMMARY PT A&O X4 AND IN PLEASENT MOOD. DIALYSIS THIS SHIFT, 2.5L OFF. CONT. BLADDER IRRIGATION, LUCAS BAG CLEAR PINK. DAUGHTER @ BEDSIDE T/O SHIFT. C/O CONSTIPATION MEDICATED PER EMAR. VSS. CALL LIGHT W/IN REACH. CT SCAN SHOWED MASS IN BLADDER-INTERVENTION RADIOLOGY CONSULTED.
[2021-10-26 21:39] LABS: Hematocrit 22.2 % (37.0-53.0); Hemoglobin 7.1 g/dL (13.5-17.5)
[2021-10-27 06:05] LABS: Hemoglobin 7.2 g/dL (13.5-17.5)
--- NOTE | 2021-10-27 06:09 | NUR ---
SHIFT SUMMARY NOC: AT BEDTIME IRRIGATION LUCAS BECAME BLOCKED BY BLOOD CLOT. LUCAS FLUSHED, BLOOD CLOT REMOVED, LUCAS DRAINING APPROPRIATELY. URINE PINK CLEAR TO DOUGLAS CLEAR, OCCASIONAL SMALL BLOOD CLOT. IF IRRIGATION SLOWED DOWN THEN URINE STARTS TO BECOME MORE BLOODY. PT HAD 3 BM'S ON ASW SPECIALIST.
[2021-10-27 06:37] LABS: Albumin, Blood 2.1 g/dL (3.4-5.0); Anion Gap 10 mmol/L (6-16); Blood Urea Nitrogen 60 mg/dL (8-24); Bun/Creatinine Ratio 12.3 (12.0-20.0); CO2, Blood 32 mmol/L (21-32); Calcium, Blood 8.6 mg/dL (8.5-10.1); Chloride, Blood 89 mmol/L (98-108); Creatinine, Blood 4.86 mg/dL (0.60-1.20); Glomerular Filtration Rate 11 (60-); Glucose, Blood 100 mg/dL (70-99); Magnesium, Blood 2.4 mg/dL (1.6-2.4); Phosphorus, Blood 5.1 mg/dL (2.5-4.9); Potassium, Blood 4.7 mmol/L (3.5-5.5); Sodium, Blood 131 mmol/L (136-145)
[2021-10-27 09:56] LABS: Hematocrit 21.8 % (37.0-53.0); Hemoglobin 6.8 g/dL (13.5-17.5)
--- NOTE | 2021-10-27 16:16 | NUR ---
Patient is surrounded by family. He talks to me as if no one else is in the room. He talks about his life with it's struggles, his deep spiritual connection to God throughout it's span and his overflowing love for his family. He shares about the issues that are personal to him and part of that discussion centered around and dying and how he feels "ready to be well or to not" because of the love he feels from God and family. I provide therapeutic listening, pastoral group home counselor, companionship and prayer. Pt and family voice their appreciation as pt appears to be encouraged in his luzma. I will continue to remain available to patient and family.
--- NOTE | 2021-10-27 17:08 | NUR ---
SHIFT SUMMARY PT A&O X4 AND IN PLEASENT MOOD T/O SHIFT. FAMILY IN W/ PT T/O SHIFT. PLAN TO TRANSFUSE 1 UNIT OF PRBC'S PER ORDERS. BLADDER CONT. IRRIGATION. NO C/O PAIN. CALL LIGHT W/IN REACH. INTERVENTION RADIOLOGY IN TO SEE PT THIS SHIFT- NO FURTHER INTERVENTIONS PLANNED. PLAN TO TRANSFER TO [facility].
[2021-10-27 22:06] LABS: Hematocrit 24.9 % (37.0-53.0)
[2021-10-28 05:27] LABS: BASOPHILS ABSOLUTE AUTO 0.04 K/mm3 (0.00-0.23); BASOPHILS PERCENT AUTO 0 % (0-2); EOSINOPHILS ABSOLUTE AUTO 0.23 K/mm3 (0.00-0.68); EOSINOPHILS PERCENT AUTO 2 % (0-6); Hematocrit 25.1 % (37.0-53.0); IMMATURE GRAN ABSOLUTE AUTO 0.08 K/mm3 (0.00-0.10); IMMATURE GRAN PERCENT AUTO 1 % (0-1); LYMPHOCYTES ABSOLUTE AUTO 0.92 K/mm3 (0.84-5.20); LYMPHOCYTES PERCENT AUTO 7 % (21-46); MONOCYTES ABSOLUTE AUTO 1.39 K/mm3 (0.16-1.47); MONOCYTES PERCENT AUTO 10 % (4-13); Mean Corpuscular HGB 25.9 pg (26.0-34.0); Mean Corpuscular HGB Conc 31.9 g/dL (31.5-36.5); Mean Corpuscular Volume 81 fL (80-100); Mean Platelet Volume 9.7 fL (9.1-12.4); NEUTROPHILS ABSOLUTE AUTO 11.38 K/mm3 (1.96-9.15); NEUTROPHILS PERCENT AUTO 81 % (41-73); Platelet Count 282 K/mm3 (150-400); RDW Coefficient Variation 17.6 % (11.7-14.2); RDW Standard Deviation 51.8 fL (35.1-46.3); Red Blood Cell Count 3.09 M/mm3 (4.30-5.90); White Blood Cell Count 14.04 K/mm3 (4.00-11.30)
[2021-10-28 06:07] LABS: Albumin, Blood 1.9 g/dL (3.4-5.0); Anion Gap 12 mmol/L (6-16); Blood Urea Nitrogen 77 mg/dL (8-24); CO2, Blood 29 mmol/L (21-32); Calcium, Blood 8.5 mg/dL (8.5-10.1); Chloride, Blood 85 mmol/L (98-108); Creatinine, Blood 5.93 mg/dL (0.60-1.20); Glomerular Filtration Rate 9 (60-); Glucose, Blood 98 mg/dL (70-99); Magnesium, Blood 2.4 mg/dL (1.6-2.4); Phosphorus, Blood 5.5 mg/dL (2.5-4.9); Potassium, Blood 5.1 mmol/L (3.5-5.5); Sodium, Blood 126 mmol/L (136-145)
--- NOTE | 2021-10-28 07:33 | NUR ---
SHIFT SUMMARY NOC: 3 WAY [address] WITH CONTINOUS IRRIGATION. URINE LIGHT PINK TO CLEAR MANJU. LUCAS CLOTS OF PERIODICALLY NEEDING MANUAL IRRIGATION. IRRIGATED 3 TIMES THIS SHIFT. PT HAS PRESSURE DISCOMFORT WHEN LUCAS CLOTTED OFF. PT AMBULATED IN THOMAS WITH FWW AND GAITBELT 50 FT.
--- NOTE | 2021-10-28 07:36 | NUR ---
ROOM AVAILABLE AT [facility]. REPORT CALLED TO 6W DAY SHIFT CHARGE NURSE. DAUGHTER CALLED AND UPDATED.
== END 2021-10-28 08:26 | disposition short-term general hospital (02) | DRG 686 ==
LOC: ER 18:19 → MEDS 22:47
PROVIDERS: Emergency Medicine; Family Medicine; Internal Medicine Nephrology; ADMIT Internal Medicine
DX: C79.11 Secondary malignant neoplasm of bladder (principal); N18.6 End stage renal disease; T83.511A Infection and inflammatory reaction due to indwelling urethral catheter, initial encounter; I13.2 Hypertensive heart and chronic kidney disease with heart failure and with stage 5 chronic kidney disease, or end stage renal disease; E87.1 Hypo-osmolality and hyponatremia; I50.22 Chronic systolic (congestive) heart failure; I48.20 Chronic atrial fibrillation, unspecified; N39.0 Urinary tract infection, site not specified; N25.81 Secondary hyperparathyroidism of renal origin; R31.0 Gross hematuria; D63.1 Anemia in chronic kidney disease; I25.2 Old myocardial infarction; Z85.46 Personal history of malignant neoplasm of prostate; Z98.890 Other specified postprocedural states; Z79.891 Long term (current) use of opiate analgesic; Z79.1 Long term (current) use of non-steroidal anti-inflammatories (NSAID); Z79.01 Long term (current) use of anticoagulants; Z79.899 Other long term (current) drug therapy; Y84.6 Urinary catheterization as the cause of abnormal reaction of the patient, or of later complication, without mention of misadventure at the time of the procedure
CPT/HCPCS: 36415; 36430; 51700; 51702; 51798; 74177; 76770; 80048; 80053; 80069; 83735; 85014; 85018; 85025; 85027; 86850; 86900; 86901; 86920; 86923; 96372; 99283-25; 99284-25; A9270; G0103; G0378; J0290; J0881; J7040; P9016; Q9967

== ENCOUNTER 2021-11-07 13:19 | Inpatient (IN) | payer MEDICARE, OTHER ==
[~2021-11-07] VITALS: Ht 177.8 cm; Wt 68.8 kg
[2021-11-07 13:40] LABS: Chloride (POC) 92 mmol/L (98-108); Creatinine (POC) 5.2 mg/dL (0.8-1.3); Glucose (ISTAT POC) 145 mg/dL (70-99); Hemoglobin (POC) 10.2 g/dL (13.5-17.5); Potassium (POC) 5.1 mmol/L (3.5-5.5); Sodium (POC) 128 mmol/L (135-148); Total CO2 (POC) 27 mmol/L (21-32)
[2021-11-07 13:47] LABS: BASOPHILS ABSOLUTE AUTO 0.05 K/mm3 (0.00-0.23); BASOPHILS PERCENT AUTO 0 % (0-2); EOSINOPHILS ABSOLUTE AUTO 0.08 K/mm3 (0.00-0.68); EOSINOPHILS PERCENT AUTO 1 % (0-6); Hematocrit 30.6 % (37.0-53.0); Hemoglobin 9.5 g/dL (13.5-17.5); IMMATURE GRAN ABSOLUTE AUTO 0.51 K/mm3 (0.00-0.10); IMMATURE GRAN PERCENT AUTO 3 % (0-1); LYMPHOCYTES ABSOLUTE AUTO 2.66 K/mm3 (0.84-5.20); LYMPHOCYTES PERCENT AUTO 16 % (21-46); MONOCYTES ABSOLUTE AUTO 0.84 K/mm3 (0.16-1.47); MONOCYTES PERCENT AUTO 5 % (4-13); Mean Corpuscular HGB 26.5 pg (26.0-34.0); Mean Corpuscular Volume 85 fL (80-100); Mean Platelet Volume 9.3 fL (9.1-12.4); NEUTROPHILS ABSOLUTE AUTO 12.95 K/mm3 (1.96-9.15); NEUTROPHILS PERCENT AUTO 76 % (41-73); NRBC ABSOLUTE 0.02 K/mm3 (0.00-0.02); NRBC Auto 0.1 /100 WBC (0.0-0.2); Platelet Count 177 K/mm3 (150-400); RDW Coefficient Variation 22.9 % (11.7-14.2); RDW Standard Deviation 69.6 fL (35.1-46.3); Red Blood Cell Count 3.59 M/mm3 (4.30-5.90); White Blood Cell Count 17.09 K/mm3 (4.00-11.30)
[2021-11-07 13:50] LABS: Base Excess Venous -1.6 mmol/L; Bicarbonate Venous 22.8 mmol/L (24.0-30.0); PCO2 Venous 58.2 mmHg (38-42); pH Blood Venous 7.25 (7.34-7.37)
[2021-11-07 13:59] LABS: Albumin, Blood 2.2 g/dL (3.4-5.0); Albumin/Globulin Ratio 0.5 (0.8-1.8); Bilirubin, Total 0.4 mg/dL (0.1-1.0); Bun/Creatinine Ratio 12.6 (12.0-20.0); Calcium, Blood 8.8 mg/dL (8.5-10.1); Creatinine, Blood 5.01 mg/dL (0.60-1.20); Globulin, Blood 4.2 g/dL (2.2-4.0); Potassium, Blood 5.1 mmol/L (3.5-5.5); Total Protein, Blood 6.4 g/dL (6.4-8.2)
[2021-11-07] MEDS ORDERED: DOXYCYCLINE HY100 M1 PO (14:55)
[2021-11-07] MEDS ORDERED: BICALUTAMIDE PO (14:55)
[2021-11-07] MEDS ORDERED: AMOX-CLAV 500-1 EAC5 PO (14:55)
[2021-11-07] MEDS ORDERED: Mirtazapine15 M1 PO (14:56)
[2021-11-07] MEDS ORDERED: HYDHCL25 PO (14:57)
[2021-11-07] MEDS ORDERED: LISI5 PO (14:58)
[2021-11-07] MEDS ORDERED: Acetaminophen325 M1 PO (15:06)
[2021-11-07 16:57] LABS: SARS-Cov-2 (COVID-19) PCR, MMC NEGATIVE (NEGATIVE)
--- NOTE | 2021-11-07 17:00 | NUR ---
PT ARRIVAL TO THE UNIT.... PT ARRIVED ON THE UNIT AT APROX 1615, THE PT WAS INTUBATED AND SEDATED ON 25MCG/KG OF PROPOFOL, THE PT WOULD RESPOND TO PAINFUL STIMULI. THE PT'S ET TUBE IS 8.0 AND 25 AT THE TEETH, VENT SETTINGS WERE AC: 16/400/5/40% L/S CLEAR T/O DIM IN THE BASES, RR WAS 16. THE PT'S BP WAS STABLE, HR WAS IN THE LOW 50'S. PT HAS 3+ PITTING EDEMA TO THE BLE. BT PRESENT AND HYPOACTIVE, ABD IS SOFT AND NONTENDER TO PALPATION. OG TUBE SET TO LIS, PER THE PT'S CHEST XRAY THE OG TUBE WAS TO HIGH, THIS RN DROPPED THE OG TUBE DOWN APROX 8CM PER THE RECOMENDATION ON THE CHEST XRAY REPORT. TEMP LUCAS IS PATENT AND DRAINING SCANT URINE TO GRAVITY. FAMILY AT THE BEDSIDE. WILL CONTINUE TO MONITOR.
[2021-11-07 17:47] LABS: PO2 Arterial 131 mmHg (80-100); pH Blood Arterial 7.55 (7.35-7.45)
--- NOTE | 2021-11-07 19:17 | NUR ---
SHIFT SUMMARY.... NO ACUTE NEGATIVE CHANGES NOTED SINCE ARRIVAL, DR. HOUSTON WAS AT THE BEDSIDE TO ASSESS THE PT, PER DR. HOUSTON KEEP THE PT'S TEMP <98.0 PT'S CURRENT TEMP IS 96.0 PER TEMP LUCAS. PT'S PROPOFOL WAS STOPPED PER DR. HOUSTON THE PT IS SLOWLY STARTING TO RESPOND TO VERBAL STIMULI BUT HAS NOT BEEN ABLE TO FOLLOW DIRECTIONS AT THIS TIME. A POWER GLIDE WAS PLACED IN THE PT'S HUANG. WILL CONTINUE TO MONITOR UNTIL REPORT IS GIVEN TO ONCOMING RN.
[2021-11-07 19:50] LABS: Hematocrit 24.7 % (37.0-53.0); Hemoglobin 7.9 g/dL (13.5-17.5)
[2021-11-08 01:43] LABS: Source, Urine Foley catheter
[2021-11-08 01:54] LABS: Appearance, Urine Cloudy (Clear); Bilirubin, Urine Neg (Neg); Blood, Urine 5+ (Neg); Color, Urine Yellow (P-Yellow); Glucose Qualitative, Urine Neg (Neg); Ketones, Urine Neg (Neg); Leukocyte Esterase, Urine 3+ (Neg); Nitrite, Urine Neg (Neg); Protein, Urine 3+ (Neg); Urobilinogen, Urine NORM (Normal); pH, Urine 6.5 (5.0-8.0)
[2021-11-08 02:09] LABS: Red Blood Cells, Urine TNTC /hpf (0-2); White Blood Cells, Urine 50-100 /hpf (0-5)
[2021-11-08 02:10] LABS: Bacteria Many /hpf; Squamous Epithelial Cells Not Seen /hpf (Few)
[2021-11-08 03:44] LABS: BASOPHILS ABSOLUTE AUTO 0.05 K/mm3 (0.00-0.23); BASOPHILS PERCENT AUTO 0 % (0-2); EOSINOPHILS ABSOLUTE AUTO 0.07 K/mm3 (0.00-0.68); EOSINOPHILS PERCENT AUTO 1 % (0-6); Hematocrit 24.2 % (37.0-53.0); Hemoglobin 7.8 g/dL (13.5-17.5); IMMATURE GRAN ABSOLUTE AUTO 0.11 K/mm3 (0.00-0.10); IMMATURE GRAN PERCENT AUTO 1 % (0-1); LYMPHOCYTES ABSOLUTE AUTO 0.88 K/mm3 (0.84-5.20); LYMPHOCYTES PERCENT AUTO 7 % (21-46); MONOCYTES ABSOLUTE AUTO 0.98 K/mm3 (0.16-1.47); MONOCYTES PERCENT AUTO 8 % (4-13); Mean Corpuscular HGB 26.8 pg (26.0-34.0); Mean Corpuscular HGB Conc 32.2 g/dL (31.5-36.5); Mean Corpuscular Volume 83 fL (80-100); Mean Platelet Volume 10.9 fL (9.1-12.4); NEUTROPHILS ABSOLUTE AUTO 10.13 K/mm3 (1.96-9.15); NEUTROPHILS PERCENT AUTO 83 % (41-73); NRBC ABSOLUTE 0.02 K/mm3 (0.00-0.02); NRBC Auto 0.2 /100 WBC (0.0-0.2); Platelet Count 199 K/mm3 (150-400); RDW Standard Deviation 67.9 fL (35.1-46.3); Red Blood Cell Count 2.91 M/mm3 (4.30-5.90); White Blood Cell Count 12.22 K/mm3 (4.00-11.30)
[2021-11-08 04:07] LABS: Albumin, Blood 1.7 g/dL (3.4-5.0); Albumin/Globulin Ratio 0.5 (0.8-1.8); Bilirubin, Total 0.5 mg/dL (0.1-1.0); Bun/Creatinine Ratio 12.8 (12.0-20.0); Calcium, Blood 8.1 mg/dL (8.5-10.1); Creatinine, Blood 5.46 mg/dL (0.60-1.20); Globulin, Blood 3.6 g/dL (2.2-4.0); Magnesium, Blood 2.1 mg/dL (1.6-2.4); Phosphorus, Blood 4.3 mg/dL (2.5-4.9); Potassium, Blood 5.7 mmol/L (3.5-5.5); Thyroid Stimulating Hormone 18.6 uIU/mL (0.360-4.800); Total Protein, Blood 5.3 g/dL (6.4-8.2)
--- NOTE | 2021-11-08 12:24 | NUR ---
REASSESSMENT PT REMAINS INTUBATED AND LIGHTLY SEDATED. HE OPENS HIS EYES TO VOICE. LUNGS ARE CLEAR, SCANT PICKENS SPUTUM PRODUCTION. SINUS DANIEL WITH RATE IN THE UPPER 40S TO 50S, BP STABLE. EDEMA IN LOWER EXTREMITIES UNCHANGED. SCANT URINE PRODUCTION. PT'S FAMILY MEMBERS HAVE BEEN AT HIS BEDSIDE MOST OF THE MORNING AND WERE UPDATED BY DR. MIGNON NOVAK AND DR. FULLER. CONTINUING TO MONITOR.
[2021-11-08 12:48] LABS: Free Thyroxine 0.94 ng/dL (0.70-1.60); Triiodothyronine, Free 1.6 pg/mL (2.18-3.98)
--- NOTE | 2021-11-08 15:00 | NUR ---
Met with pt's son and daughter at bedside this am. They shared that their dad is a ; that their mom late last year. They state they are "realists" and know their dad may not have a "long life ahead", but they want to figure out why this happened before any other decisions. I agreed completely, as there were no clear medical indication as to why pt coded. Plan to check in again tomorrow with pt and family, continue therapeutic visit.
--- NOTE | 2021-11-08 17:16 | NUR ---
SHIFT SUMMARY PT REMAINED INTUBATED AND LIGHTLY SEDATED TODAY. HE CONTINUES TO RESPOND TO VOICE. LOW DOSE LEVOPHED STARTED AT THE END OF DIALYSIS PER DR. CROW TO ALLOW MORE FLUID TO BE TAKEN OFF, BUT THEN WAS ABLE TO BE TITRATED OFF SOON DIALYSIS ENDED. LUNGS REMAIN CLEAR. SCANT SPUTUM THIS AFTERNOON. TOLERATING TUBE FEED SO RATE INCREASED TO GOAL RATE OF 30ML/HR. CONTINUING TO MONITOR.
[2021-11-09 04:28] LABS: BASOPHILS ABSOLUTE AUTO 0.06 K/mm3 (0.00-0.23); BASOPHILS PERCENT AUTO 0 % (0-2); EOSINOPHILS ABSOLUTE AUTO 0.08 K/mm3 (0.00-0.68); EOSINOPHILS PERCENT AUTO 1 % (0-6); Hematocrit 25.4 % (37.0-53.0); Hemoglobin 8.2 g/dL (13.5-17.5); IMMATURE GRAN PERCENT AUTO 1 % (0-1); LYMPHOCYTES ABSOLUTE AUTO 0.92 K/mm3 (0.84-5.20); LYMPHOCYTES PERCENT AUTO 7 % (21-46); MONOCYTES ABSOLUTE AUTO 1.22 K/mm3 (0.16-1.47); MONOCYTES PERCENT AUTO 9 % (4-13); Mean Corpuscular HGB 26.8 pg (26.0-34.0); Mean Corpuscular HGB Conc 32.3 g/dL (31.5-36.5); Mean Corpuscular Volume 83 fL (80-100); Mean Platelet Volume 9.8 fL (9.1-12.4); NEUTROPHILS ABSOLUTE AUTO 11.18 K/mm3 (1.96-9.15); NEUTROPHILS PERCENT AUTO 83 % (41-73); Platelet Count 247 K/mm3 (150-400); RDW Coefficient Variation 23.6 % (11.7-14.2); Red Blood Cell Count 3.06 M/mm3 (4.30-5.90); White Blood Cell Count 13.56 K/mm3 (4.00-11.30)
[2021-11-09 04:46] LABS: Bun/Creatinine Ratio 12.6 (12.0-20.0); Calcium, Blood 8.2 mg/dL (8.5-10.1); Creatinine, Blood 4.78 mg/dL (0.60-1.20); Potassium, Blood 4.2 mmol/L (3.5-5.5)
--- NOTE | 2021-11-09 13:39 | NUR ---
Spiritual care visit conducted. Patient is lying in bed and on vent. Pt is responsive to voice and nods to answer simple questions. Pt nods yes to his luzma still being strong, knowing he is loved by family and to having a prayer said over him. He shakes his head "no" when asked if he was in pain. Pt's dtr Gama, tells me about the complicated family dynamics and that one of pt's son and sister tend to cause stress to pt and other family members. Gama shares her fears about how pt will respond to extubation and their plans to "let him go" if he can't make it with out vent support. She is tearful. I provide positive ways to view her father's situation, and the importance of having a loving luzma-filled environment around pt at this time. I also provide recitaion of scripture and prayer. Pt responds well and shows signs of well to prayer (he gives a positve nod at the conclusion of the prayer). Family appear to be comforted by the spiritual care visit.
--- NOTE | 2021-11-09 17:57 | NUR ---
SUMMARY PT INTUBATED AND SEDATED WITH PROPOFOL. PT CAN NOD YES OR NO TO QUESTIONS. SEDATION WAS TURNED OFF FOR SBT FOR A HOUR. PT BECAME AGITATED AND WOULD REACH FOR ETT AND IT BECAME DIFFICULT TO KEEP HIM FROM PULLING ETT. SEDATION WAS TURNED BACK ON BUT REMAINS ON SPONTANEOUS SETTINGS. IF PT BECOMES TIRED HE IS TO BE PLACED ON PREVIOUS SETTINGS. STILL HAVING THICK PICKENS SECRETIONS. GOT DIALYSIS TODAY AND TOLERATED WELL. DR. CROW WANTS PT TO HAVE ANOTHER ROUND OF DIAYLYSIS BEFORE HE IS EXTUBATED. FAMILY AT BEDSIDE MOST OF THE DAY AND UPDATED T/O. NO ACUTE CHANGES THIS SHIFT.
--- NOTE | 2021-11-09 22:00 | NUR ---
ASSUMED CARE. OPENS EYES TO VERBAL STIMULI, WILL NOD YES AND NO TO QUESTIONS. GROSS MOTOR MOVEMENT. LS CLEAR, DIM BASES, SUCTION ETT TUBE AND GOT PICKENS THICK SECRETIONS. SPONTANOUS VENT SETTINGS AT 10/8/30%, SATS ABOVE 90. SINUS ON MONITOR DOES DANIEL DOWN AT TIMES. ABD SOFT, TF AT GOAL 30ML/HR. BT HYPOACTIVE. SKIN IS DRY AND FLACKY, NO EDEMA. ORAL CARE PROVIDED, REPOSTIONED. PROPROFOL GTT AT 15MCQ. RESIDUALS CHECKED-0. CATH PATENT AND DRAINING BLOOD TINGE URINE SCANT AMOUNT. VS WNL. WILL CONTINUE TO MONTIOR.
[2021-11-10 04:44] LABS: BASOPHILS ABSOLUTE AUTO 0.06 K/mm3 (0.00-0.23); BASOPHILS PERCENT AUTO 1 % (0-2); EOSINOPHILS PERCENT AUTO 1 % (0-6); Hematocrit 23.9 % (37.0-53.0); Hemoglobin 7.4 g/dL (13.5-17.5); IMMATURE GRAN ABSOLUTE AUTO 0.07 K/mm3 (0.00-0.10); IMMATURE GRAN PERCENT AUTO 1 % (0-1); LYMPHOCYTES ABSOLUTE AUTO 0.79 K/mm3 (0.84-5.20); LYMPHOCYTES PERCENT AUTO 7 % (21-46); MONOCYTES ABSOLUTE AUTO 1.14 K/mm3 (0.16-1.47); MONOCYTES PERCENT AUTO 10 % (4-13); Mean Corpuscular HGB 26.2 pg (26.0-34.0); Mean Corpuscular Volume 85 fL (80-100); Mean Platelet Volume 9.9 fL (9.1-12.4); NEUTROPHILS ABSOLUTE AUTO 9.11 K/mm3 (1.96-9.15); NEUTROPHILS PERCENT AUTO 81 % (41-73); Platelet Count 257 K/mm3 (150-400); RDW Coefficient Variation 23.8 % (11.7-14.2); RDW Standard Deviation 71.3 fL (35.1-46.3); Red Blood Cell Count 2.82 M/mm3 (4.30-5.90); White Blood Cell Count 11.27 K/mm3 (4.00-11.30)
[2021-11-10 05:08] LABS: Albumin, Blood 1.6 g/dL (3.4-5.0); Anion Gap 8 mmol/L (6-16); Blood Urea Nitrogen 50 mg/dL (8-24); Bun/Creatinine Ratio 11.9 (12.0-20.0); CO2, Blood 29 mmol/L (21-32); Calcium, Blood 8.2 mg/dL (8.5-10.1); Chloride, Blood 101 mmol/L (98-108); Creatinine, Blood 4.21 mg/dL (0.60-1.20); Glomerular Filtration Rate 13 (60-); Glucose, Blood 110 mg/dL (70-99); Magnesium, Blood 2.3 mg/dL (1.6-2.4); Phosphorus, Blood 3.5 mg/dL (2.5-4.9); Potassium, Blood 4.3 mmol/L (3.5-5.5); Sodium, Blood 138 mmol/L (136-145)
--- NOTE | 2021-11-10 06:30 | NUR ---
SHIFT SUMMARY: AWAKENS TO VERBAL STIMULI. WILL RESPOND WITH YES OR NO HEAD NODS. MOVES ALL EXTREMITITES WELL. PUPILS REACTIVE. GAG, COUGH, AND SWALLOW ARE INTACT. PROPOFOL WAS INCREASED TO 20 THIS AM AT PATIENT TRIED TO CRAWL OUT OF BED. LS DIM, SECREATIONS VIA ETT PICKENS THICK. SPONTANOUS VENT SETTINGS 10/8/5/35%. TOLERATED WELL. ORAL SUCTIONING ALSO HAS SOME PICKENS SECREATIONS OBTAINED. SINUS DANIEL RATE CAN BE 50-70. OG TO SUCTION. NEPRO AT GOAL OF 30ML/HR, NO BM. LUCAS REMAINS PATENT ONLY HAD 25CC OF BLOODY URINE OUTPUT. RESTRAINTS IN PLACE HE ATTEMPTS TO GRAB TUBE. WILL REPORT OFF.
--- NOTE | 2021-11-10 08:35 | NUR ---
CARE OF PT ASSUMED AT 0700. PT SEDATED ON PROPOFOL AT [facility]G [facility]. PT SLEEPING, WAKES TO VOICE, CALM, FOLLOWS COMMANDS. PT HAS RICARDO SPONT OVERNIGHT. POSSIBLE EXT TODAY.
--- NOTE | 2021-11-10 11:13 | NUR ---
PT EXTUBATED AT 1100, 2L VIA N/C PLACED, VSS. FAMILY AT BEDSIDE. PT DROWSY W WEAK COUGH, THROAT SUCTIONED. PT WHISPERED "HELP ME" SEVERAL TIMES TO FAMILY.
--- NOTE | 2021-11-10 13:56 | NUR ---
PT MORE ALERT, SPEAKS WITH FAMILY AND STAFF, SOMEWHAT CONFUSED. FEELS IF HE IS ON HIS "DEATHBED". HE ASKED ABOUT EVENTS LEADING HIM TO THE HOSPITAL, WHEN INFORMED, HE ASKED WHY HE WAS A FULL CODE, AND SAID WE NEED TO CHANGE THAT.
--- NOTE | 2021-11-10 14:36 | NUR ---
PT CONVERTED FROM SINUS TO AFIB AROUND 1345. BP STABLE, HR 90-110. WILL NOTIFY DR CROW.
--- NOTE | 2021-11-10 15:08 | NUR ---
Spiritual care visit conducted. Patient requests to be anointed with oil. I visit pt and several family members (who are present in the rm), and we discuss pt's status and needs. Pt talks about dying, seeing kyrie and his waiting for him there. He is telling his family members in the room about his love for each of them. His greatest concern is for the "salvation" of his son, Ruiz. He asks that I anoint and pray for him which I gladly perform. I conduct more life review and provide anticipatory grief support to family. I highlight the impact of pt on family and family on the pt and discuss final arrangements ("don't do anything or spend anything on me after I'm gone"). Family and pt respond well and show signs of increased peace and connection. I will continue to remain available to pt and family.
--- NOTE | 2021-11-10 16:21 | NUR ---
PT BACK IN SINUS AROUND 1615. PT MORE ALERT HAS SHORT TERM MEMORY LOSS, FORGET WHAT WHAT TOLD TO HIM 30-60 SEC AFTER GIVEN INFO AND RE-ASKS SAME QUESTION. PT PASSED BED SIDE SWALLOW AND ABLE TO RICARDO SMALL SIPS OF WATER. COUGH BECOMING STRONGER, COUGHED UP MOD AMT DARK THICK YELLOW SPUTUM. FAMILY REMAINS AT BEDSIDE. PT NOW DNR STATUS. MEPILEX PLACED TO BUTTOCKS. BUTTOCKS MILDLY RED. LINEN CHANGED.
--- NOTE | 2021-11-10 19:00 | NUR ---
ASSUMED CARE ASSUMED CARE OF PATIENT. AWAKE AND ALERT. ORIENTED TO SELF, FAMILY, AND TO THE FACT THAT HE IS IN THE HOSPITAL. DOES NOT REMEMBER RECENT EVENTS. FORGETFUL CONVERSATION. COOPERTIVE WITH CARE. FAMILY AT BEDSIDE. DENIES C/O PAIN AT THIS TIME. DENIES NAUSEA. FREQUENTLY REQUESTS WATER AND "SUPPER." NPO AT THIS TIME D/T ASPIRATION RISK. MONITOR SHOWS NSR WITH OCCASIONAL AFIB. BP STABLE. O2 2L NC- SATS STABLE. DENIES DYSPNEA/SOB. OCCASIONAL NON-PRODUCTIVE COUGH. LUCAS IN PLACE- SCANT DRAINAGE. SEE SHIFT ASSESSMENT FOR FULL ASSESSMENT.
[2021-11-11 03:43] LABS: Hematocrit 26.1 % (37.0-53.0); Hemoglobin 8.1 g/dL (13.5-17.5)
[2021-11-11 04:00] LABS: Albumin, Blood 1.8 g/dL (3.4-5.0); Anion Gap 9 mmol/L (6-16); Blood Urea Nitrogen 64 mg/dL (8-24); Bun/Creatinine Ratio 12.3 (12.0-20.0); CO2, Blood 27 mmol/L (21-32); Calcium, Blood 8.6 mg/dL (8.5-10.1); Chloride, Blood 101 mmol/L (98-108); Creatinine, Blood 5.19 mg/dL (0.60-1.20); Glomerular Filtration Rate 10 (60-); Glucose, Blood 78 mg/dL (70-99); Magnesium, Blood 2.2 mg/dL (1.6-2.4); Phosphorus, Blood 4.6 mg/dL (2.5-4.9); Potassium, Blood 4.9 mmol/L (3.5-5.5); Sodium, Blood 137 mmol/L (136-145)
--- NOTE | 2021-11-11 06:27 | NUR ---
SHIFT SUMMARY NO ACUTE CHANGES DURING NOC. PT CONTINUES TO BE DISORIENTED TO DATE/TIME, EVENTS, AND OCCASIONALLY TO PLACE. PT IS VERY FORGETFUL AND REPEATEDLY ASKS QUESTIONS ABOUT WHAT HAPPPENED, WHY HE IS HERE, AND WHY "THEY DIDN'T JUST LET ME ." HE REPEATEDLY STATES THAT HE IS READY TO GO TO [facility] TO "BE WITH GOOD AND MY ." HE ALSO REPEATEDLY ASKS IF WE KNOW THAT HE DOES NOT WISH FOR US TO SAVE HIS LIFE. PT IS DNR STATUS. REMAINED NPO T/O NOC. ATTEMPTED LIQUIDS AT BEGINNING OF SHIFT, BUT PATIENT COUGHED AFTER. FREQUENT ORAL SWABS DONE TO MOISTEN MOUTH. USING CALL LIGHT THIS AM. MOVES ALL EXTREMITIES WEAKLY. LUCAS PATENT WITH SCANT URINE OUTPUT. INCONTINENT OF LARGE SOFT BROWN STOOL THIS AM. WILL REPORT TO ONCOMING RN WHEN AVAILABLE.
--- NOTE | 2021-11-11 09:13 | NUR ---
ASSUMED CARE THIS AM PT. AWAKENS EASILY TO VERBAL STIMULI. CALM AND COOPERATIVE WITH CARE. PT. ORIENTED TO SELF AND LOCATION BUT UNCLEAR ON RECENT EVENTS. FORGETFUL AT TIMES, ASKING REPEATEDLY "WHAT HAPPENED", AND STATING "WHY DIDNT THEY JUST LET ME GO". PT STATES "I LOST MY IN APRIL AND I JUST WANT TO BE WITH HER AND HOLD HER AGAIN, I JUST WANT TO REST." PT. DAUGHTER AT BEDSIDE AND TEARFUL. REPORTS PT USUALLY DOESNT TALK THIS WAY. PALLIATIVE CARE TEAM CONTACTED FOR ADDITIONAL SUPPORT. PT. IN AFIB THIS AM, HR 110-130S. PT. DENIES PAIN, HOWEVER HAS DISCOMFORT WITH MOVEMENT. FREQUENT ORAL SWABS PER PT. REQUEST. DIALYSIS PLANNED FOR THIS AM. CALL LIGHT IN REACH, ALL NEEDS MET AT THIS TIME.
--- NOTE | 2021-11-11 10:33 | NUR ---
Supportive visit this AM. Received call from Primary RN Guerda reporting Pt has been making statesments such as "I want to ", "I don't want to do dialysis anymore". Pt resting in bed with his eyes closed upon arrival and receiving dialysis. Pt's daughter Gama at bedside. Engaged in therapeutic listening and discussed statements made by Pt with Deleta. Deleta reports Pt may be experiencing some Delarium and is not convince he knows what he is saying. She reports he has experienced delirum in the past with previous hospital stays. She states Pt reported last weak that he was not ready to . Deleta would like to give Pt some more time to clear before making any decisions to ensure his wishes are being followed. She reports knowing the time is approaching and is prepared for end of life care but wants to be sure this is what he wants. Contined therapeutic listening. Deleta expresses appreciation and reports no other concerns at this time. Provided Palliative Care contact information per Deleta's request. Palliative Care will remain available.
--- NOTE | 2021-11-11 10:40 | NUR ---
Spiritual Care Visit. Referred by Doughnut Machine Operatorjeremi Siddiqui. Pt is resting. Daughter Evelyn is present and welcomes my visit. Daughter is unsettled about the state of mind of the Pt. Daughter and POA son (who is not present), verbalize they are not ready to go beyond the DNR at this time. Pt. is currently receiving dialysis. With theraputic listening and pastoral camp head counselor the daughter displayed evidence of agreement and encouragement. Pt. awoken in time to [place]. Prayed with Pt. and daughter. both verbalize grattitude for the spiritual care visit.
--- NOTE | 2021-11-11 11:01 | NUR ---
SPEECH THERAPY AT BESIDE TO EVAL.
--- NOTE | 2021-11-11 17:56 | NUR ---
SHIFT SUMMARY PT. MORE ALERT T/O SHIFT. NOT REPEATING SELF MUCH DAY PROGRESSED. PT ABLE TO SLEEP ON AND OFF T/O SHIFT. DIET ADVANCED TODAY, PT HAD GOOD APPETITE TODAY, FAMILY ASSISTED WITH FEEDING. PT CONTINUES TO DENY PAIN HOWEVER TENSE WITH MOVEMENTS, AND COUGH. VSS T/O SHIFT. PT NOW PCU STATUS. ALL NEEDS MET AT THIS TIME, REPORT TO ONCOMING RN .
--- NOTE | 2021-11-11 19:30 | NUR ---
ASSUMPTION OF CARE REPORT RECEIVED FROM SADIA BARKER. PT IS ALERT, ORIENTED TO SELF. DAUGHTER IS AT BEDSIDE. HIS OXYGEN SAT IS >95%. HE IS ON THE INSURANCE ACCOUNT REPRESENTATIVE, SINUS ARRYTHMIA. NO COMPLAINTS OF PAIN OR DISCOMFORT AT THIS TIME. BP WNL. PT HAD DIALYSIS ON PRIOR SHIFT. NO S/S OF ACUTE DISTRESS NOTED AT THIS TIME.
--- NOTE | 2021-11-11 20:53 | NUR ---
ASSUMED PT CARE FROM MJ RUTH AT 2044 PT SLEEPING UPON ENTERING ROOM. DAUGHTER, JESSICA, AT BEDSIDE. VERY SUPPORTIVE AND CONCERNED ABOUT HER FATHER'S STATE OF HEALTH. ASKING APPROPRIATE QUESTIONS. PT IS SALINE LOCKED AT THIS TIME. OXYGEN VIA 2L VIA NC WITH SPO2 AT 96%. PT APPEARS COMFORTABLE AND IN NO DISTRESS AT THIS TIME. CALL LIGHT WITHIN REACH. SEE SHIFT ASSESSMENT FOR FURTHER DETAILS.
--- NOTE | 2021-11-11 21:52 | NUR ---
ASSESSMENT WOKE PT UP TO PERFORM HEAD TO TOE ASSESSMENT, WELL GIVE MEDS. PT ALERT AND ORIENTED X3; HOWEVER, VERY FORGETFUL OF EVENTS. TENDS TO REPEAT SAME QUESTIONS FREQUENTLY WELL. UPON WAKING PT UP HE WAS VERY UPSET THAT HE WAS WOKEN UP. EDUCATED THAT I HAD SOME MEDICATIONS TO ADMINISTER. PT TOLERATED MEDS CRUSHED IN APPLESAUCE WITH NO OVERT S/SX OF ASPRIATION. ORAL CARE PERFORMED PRIOR TO MED ADMINISTRATION. PT NOTED TO TRANSITION FROM NSR TO AFIB WITH RVR; RATE 130'S. SBP 130'S. 2L OXYGEN VIA NC WITH SPO2 93%. PT TENDS TO PULL OXYGEN OFF FREQUENTLY. LUNG SOUNDS ARE COURSE T/O AND DIMINISHED TO LLL. HEART TONES ARE LOUD AND AUDIBLE. ABDOMEN IS SOFT, NON-TENDER WITH ACTIVE BTX4. DEPENDENT/+1 PITTING EDEMA NOTED TO SACRAL AREA AND THIGHS. SKIN IS VERY FRAGILE, BUT MOSTLY INTACT. APPEARS TO HAVE A SCRATCHED AREA TO COCCYX THAT IS INTACT WITH SURROUNDING TISSUE RED, BUT BLANCHABLE. PT NOTED TO BE PAINFUL WITH REPOSITIONING. WHEN ASKED WHERE PAIN WAS PT PUT HIS HAND OVER HIS CHEST. STATED IT DIDN'T HURT MUCH THOUGH. DENIED THE NEED FOR ANY PAIN MEDICATIONS. PT CONTINUES TO ASK WHY HE WAS SAVED AND WHY THEY DIDN'T JUST LET HIM . EDUCATED ABOUT PUBLIC CARDIAC ARRESTS AND THAT BYSTANDERS DON'T KNOW SOMEONE'S WISHES OR CODE STATUS. INFORMED HIM THAT WHILE HE IS HERE IN THE HOSPITAL AND HIS HEART WAS TO STOP HE WOULD NOT BE RESUSCITATED. HE APPEARED TO HAVE UNDERSTOOD, BUT THEN ASKED AGAIN MOMENTS LATERS. WILL CONTINUE TO REINFORCE AND ENSURE PT FEELS SECURE. PT DENIED THE NEED TO BE REPOSITIONED. STATED HE CAN TURN HIMSELF, BUT HE WOULD PREFER NOT TO BE BOTHERED UNTIL MORNING. INFORMED PT I WOULD COME IN AROUND MIDNIGHT TO ASSESS VITALS AND THEN I WOULDN'T BOTHER HIM AGAIN UNTIL 0600.
--- NOTE | 2021-11-12 04:54 | NUR ---
END OF SHIFT SUMMARY PT HAD A HARD TIME SLEEPING THIS SHIFT. ENDED UP RECEIVING ORDERS FOR MELATONIN PRN AT HS; HOWEVER, THIS WAS UNEFFECTIVE. PT BECAME RESTLESS AND STARTED PULLING THINGS OFF. MEDICATED WITH PRN HALDOL THAT WAS ON EMAR, WHICH WAS EFFECTIVE. PT WOKE UP WITH DIARRHEA EARLY THIS AM. NO BOWEL CARE MEDS HAVE BEEN GIVEN D/T ASPIRATION RISK AND MEDS NEEDING CRUSHED IN APPLESAUCE. HOWEVER, PT IS NOT ON ANY PROBIOTIC; THEREFORE, WILL HAVE DAY RN ASK FOR ORDERS. WILL CONTINUE MONITORING BMS AND ASK TO SEND A SAMPLE IF PT HAS ANOTHER LOOSE BM. PT HAS BEEN VERY PLEASANT AND COOPERATIVE WITH CARES. FRUSTATED AT TIMES WHEN HE GET WOKEN UP FOR MEDS/VITALS. PT CONTINUES TO ASK WHY HE WAS RESUSCITATED; CONTINUING TO REINFORCE AND EDUCATE. PT IS JUST VERY FORGETFUL. PT ALSO STATES HE HOPES HE MAKES IT UNTIL THE END OF THE MONTH FOR HIS GRANDSONS [place]. PT REMAINS ON 2L OF OXYGEN VIA NC WITH SPO2 >90%. PT NOTED TO BE NSR AT BEGINNING OF SHIFT AND THEN WENT INTO AFIB WITH RVR; RATE 130'S AROUND 2100. PT IS BACK IN NSR WITH HR 70-80'S. BP'S HAVE BEEN STABLE. PT TOLERATING MEDS IN APPLESAUCE AND THICKENED LIQUIDS. STATES HE DOESN'T CARE FOR THE NECTAR THICK AND WOULD LIKE JUST "REGULAR WATER". EDUCATED ON THE POSSIBILITY OF A PROLONGED HOSPITAL STAY IF HE ASPIRATED AND ENDED UP WITH PNEUMONIA. PT VERBALIZED UNDERSTANDING, BUT CONTINUES ASKING FOR THIN WATER. WILL CONTINUE TO MONITOR UNTIL REPORT IS HANDED OFF TO ONCOMING RN.
[2021-11-12 05:09] LABS: Hematocrit 27.1 % (37.0-53.0); Hemoglobin 8.3 g/dL (13.5-17.5)
[2021-11-12 05:33] LABS: Albumin, Blood 1.9 g/dL (3.4-5.0); Anion Gap 7 mmol/L (6-16); Blood Urea Nitrogen 47 mg/dL (8-24); Bun/Creatinine Ratio 10.2 (12.0-20.0); CO2, Blood 30 mmol/L (21-32); Calcium, Blood 8.5 mg/dL (8.5-10.1); Chloride, Blood 102 mmol/L (98-108); Creatinine, Blood 4.59 mg/dL (0.60-1.20); Glomerular Filtration Rate 12 (60-); Glucose, Blood 131 mg/dL (70-99); Magnesium, Blood 2.4 mg/dL (1.6-2.4); Phosphorus, Blood 4.3 mg/dL (2.5-4.9); Potassium, Blood 5.2 mmol/L (3.5-5.5); Sodium, Blood 139 mmol/L (136-145)
--- NOTE | 2021-11-12 09:57 | NUR ---
ASSUMED CARE OF PATIENT AT 0700, HE HAS BEEN ENGAGING AND TALKATIVE. HE DID WELL ON HIS BREAKFAST WITH ASSIST FROM HIS SON WHO IS AT BEDSIDE. HE HAS BEEN VISITED BY BOTH AND . HE IS SCHEDULED TO HAVE DIALYSIS TODAY. HE WAS ABLE TO TAKE HIS MEDICATIONS IN APPLESAUCE. SPEECH THERAPY WAS ABLE TO WORK WITH HIM AND WILL CONTINUE TO KEEP HIM WITH NECTAR CONSISTENCY. HE CONTINUES WITH COUGHING, WEAKLY HE STATES THAT IT HURTS. HE IS TAUGHT ABOUT SPLINTING HIS CHEST. STATES THAT IS STILL HURTS. HE IS CURRENTLY ON 2L/NC WITH GOOD SATS, HE DOES DROP TO MID-HI 80S WHEN HE TAKES OFF HIS NC WITH COUGHING.
--- NOTE | 2021-11-12 17:43 | NUR ---
REPORT TO MJ LIMA FOR TRANSFER TO MEDICAL FLOOR. HE IS UP IN THE CHAIR, TAKING IN SOME DINNER. SON REMAINS AT HIS SIDE.
--- NOTE | 2021-11-12 18:31 | NUR ---
PATIENT IS ALERT AND ORIENTED AND COOPERATIVE WITH CARE. THE PATIENT'S SON IS AT THE BEDSIDE. CHRONIC LUCAS IS IN PLACE, POOR OUTPUT. SAT UP IN A CHAIR TODAY. REPOSITIONS WITH PILLOWS FOR COMFORT. WILL CONTINUE TO MONITOR
--- NOTE | 2021-11-13 05:24 | NUR ---
SHIFT SUMMARY NOC: PT ALERT/ORIENTATED RESPONDS APPROPRIATELY. PT HAD LIQUID BM LAST NIGHT, 2A WITH GAITBELT AND FWW TO BSC. PT ONLY HAS PAIN TO CHEST WHEN COUGHING. PT INSTRUCTED ON USING PILLOW SPLINT WHEN COUGHING. PT REQUESTED SOMETHING STRONGER THAN MELATONIN FOR SLEEP. CALLED, NEW ORDERS, TEMAZEPAM 7.5 MG PO ONCE. PT UP MOST OF NIGHT, FELL ASLEEP AROUND 0400. PT SEEMS DEPRESSED ABOUT HOSPITAL STAYS PAST MONTH BUT IS PLEASANT AND COOPERATIVE.
[2021-11-13 05:54] LABS: Hematocrit 28.2 % (37.0-53.0); Hemoglobin 8.6 g/dL (13.5-17.5)
[2021-11-13 06:11] LABS: Albumin, Blood 1.8 g/dL (3.4-5.0); Anion Gap 8 mmol/L (6-16); Blood Urea Nitrogen 59 mg/dL (8-24); Bun/Creatinine Ratio 10.6 (12.0-20.0); CO2, Blood 28 mmol/L (21-32); Calcium, Blood 8.3 mg/dL (8.5-10.1); Chloride, Blood 100 mmol/L (98-108); Creatinine, Blood 5.57 mg/dL (0.60-1.20); Glomerular Filtration Rate 9 (60-); Glucose, Blood 107 mg/dL (70-99); Magnesium, Blood 2.3 mg/dL (1.6-2.4); Phosphorus, Blood 5.4 mg/dL (2.5-4.9); Potassium, Blood 5.9 mmol/L (3.5-5.5); Sodium, Blood 136 mmol/L (136-145)
--- NOTE | 2021-11-13 19:51 | NUR ---
SHIFT SUMMARY: PT A/O X 4 ONE ASSIST TO BSC W/GB. PLEASANT AND COOPERATIVE WITH CARES. PT HAD DIALYSIS THIS AM. POST DIALYSIS PT DEVELOPED BLOOD AND CLOTS IN URINE COLLECTED IN LUCAS BAG. PT URINE WAS LIGHT PINK INITIALLY. PT BEGAN COMPLAINING OF PAIN IN BLADDER REPORTING PRESSURE AND PAIN. LUCAS WAS FLUSHED WITH STERILE WATER BUT CLOTS WOULD NOT CLEAR AND LUCAS REMAINED CLOGGED. RECEIVED ORDER TO CHANGE CATHETER TO CONTINUOUS BLADDER IRRIGATION AND OBTAINED 18 F LUCAS CATH AND PLACED BUT WAS STILL UNABLE TO CLEAR CLOTS. MONICA SANDERSON RN CALLED COMPOSER TEACHING ARTIST WHO STATED THEY HAD 26 F CATHETER AND RECOMMENDED THIS BE PLACED INSTEAD. DR. CARD NOTIFIED OF RECOMMENDATION AND HE GAVE ORDER TO PLACE 26 F CATHETER AND ALSO ADDITIONAL DOSE OF FENTANYL 25 MCG IV FOR PAIN AND LIDOCAINE UROJET FOR CATHETER PLACEMENT. CATHETER CHANGED, AND CONTINUED TO FLUSH WITH STERILE WATER AND WAS ABLE TO GET SEVERAL DIME SIZED BLOOD CLOTS TO DRAIN FROM CATHETER. WAS ABLE TO SET UP CONTINUOUS IRRIGATION. AT SHIFT END 6000 MLS HAD BEEN USED TO IRRIGATE BLADDER AND BLADDER WAS STILL DRAINING RED [place] COLORED URINE. PT REMAINED ALERT THROUGHOUT SHIFT. PAIN MANAGED WITH FENTANYL. REPORTED TO NOC RN CONCERNS AND RECOMMENDED A HGB IF BLEEDING DID NOT STOP SOON.
[2021-11-14 05:04] LABS: BASOPHILS ABSOLUTE AUTO 0.04 K/mm3 (0.00-0.23); BASOPHILS PERCENT AUTO 1 % (0-2); EOSINOPHILS ABSOLUTE AUTO 0.01 K/mm3 (0.00-0.68); EOSINOPHILS PERCENT AUTO 0 % (0-6); Hematocrit 26.8 % (37.0-53.0); Hemoglobin 8.1 g/dL (13.5-17.5); IMMATURE GRAN ABSOLUTE AUTO 0.03 K/mm3 (0.00-0.10); IMMATURE GRAN PERCENT AUTO 0 % (0-1); LYMPHOCYTES ABSOLUTE AUTO 0.86 K/mm3 (0.84-5.20); LYMPHOCYTES PERCENT AUTO 12 % (21-46); MONOCYTES ABSOLUTE AUTO 0.65 K/mm3 (0.16-1.47); MONOCYTES PERCENT AUTO 9 % (4-13); Mean Corpuscular HGB Conc 30.2 g/dL (31.5-36.5); Mean Corpuscular Volume 86 fL (80-100); Mean Platelet Volume 9.5 fL (9.1-12.4); NEUTROPHILS ABSOLUTE AUTO 5.89 K/mm3 (1.96-9.15); NEUTROPHILS PERCENT AUTO 79 % (41-73); Platelet Count 311 K/mm3 (150-400); RDW Coefficient Variation 23.9 % (11.7-14.2); RDW Standard Deviation 73.1 fL (35.1-46.3); Red Blood Cell Count 3.11 M/mm3 (4.30-5.90); White Blood Cell Count 7.48 K/mm3 (4.00-11.30)
[2021-11-14 05:22] LABS: Albumin, Blood 1.9 g/dL (3.4-5.0); Anion Gap 7 mmol/L (6-16); Blood Urea Nitrogen 47 mg/dL (8-24); Bun/Creatinine Ratio 9.8 (12.0-20.0); CO2, Blood 30 mmol/L (21-32); Calcium, Blood 8.5 mg/dL (8.5-10.1); Chloride, Blood 101 mmol/L (98-108); Creatinine, Blood 4.78 mg/dL (0.60-1.20); Glomerular Filtration Rate 11 (60-); Glucose, Blood 115 mg/dL (70-99); Magnesium, Blood 2.4 mg/dL (1.6-2.4); Phosphorus, Blood 5.2 mg/dL (2.5-4.9); Potassium, Blood 5.2 mmol/L (3.5-5.5); Sodium, Blood 138 mmol/L (136-145)
--- NOTE | 2021-11-14 06:18 | NUR ---
SUMMARY PT BLADDER IRRIGATION HAS BEEN ONGOING THROUGHOUT SHIFT. NO ISSUES WITH BLOOD CLOTS IN LUCAS. PT CONTINUES TO HAVE CRANBERRY COLOR URINE DRAINING IN LUCAS. PT DENIES ANY DISCOMFORT. PT CONTINUES TO HAVE DIFFICULTY SLEEPING. PT CURRENTLY RESTING COMFORTABLY. CALL LIGHT IN REACH.
--- NOTE | 2021-11-14 15:56 | NUR ---
Spiritual care visit conducted. Patient talks about his struggles with feeling discouragement and that he feels he barely gets his head up and he gets hit with another medical issue. We explore meaning and purpose, his spiritual beliefs and what inspires him. He tells me about a sermon his son, Arden rodrigez, the constant love and support he feels from his family and the some of the words his dad had spoken to him as a young man. Pt encouraged himself while I facilitated the conversation. Pt responds well as I provide therapeutic listening and prayer. I will continue to remain available.
--- NOTE | 2021-11-14 16:05 | NUR ---
Pt's daughter at bedside today. Pt is continuing to need bladder irrigation due to blood clots with urination. She voices frustration that "multiple people have asked about his code status in the last few days". She reports the pt had some "hospital induced delerium" and had made some statements that didn't line up with his actual wishes to continue treatments. However, she does agree with the DNR as appropriate, as pt would not like to repeat being intubated and shocked again. Daughter Palliative care will remain available. No changes needed to care plan at this time.
--- NOTE | 2021-11-14 20:14 | NUR ---
SHIFT SUMMARY: PT A/O X 3, ONE ASSIST W/GB/WALKER TO BSC TODAY. PT CONTINUES TO HAVE NEED FOR CONTINUOUS BLADDER IRRIGATION. CATHETER NEEDED TO BE FLUSHED TODAY ONE TIME DUE TO CLOTS AND SEVERAL SMALL DIME/NICKEL SIZE CLOTS REMOVED VIA STERILE FLUSH. PT TOLERATED WELL. PT HAD POOR APPETITE TODAY AND DID NOT EAT WELL. HE HAD SOFT BM TODAY. FAMILY IN WITH PT MOST OF THE DAY. PT DID ATTEMPT TO GET OOB WITHOUT USE OF CALL LIGHT WHEN FAMILY WAS NOT PRESENT. BED ALARM ON. REPORTED TO NOC RN HOW TO MANAGE CONTINUOUS BLADDER IRRIGATION.
--- NOTE | 2021-11-15 05:01 | NUR ---
SHIFT SUMMARY ADMITTED FOR ACUTE RESPIRATORY FAILURE. DNR CODE. IV ANTIB RX ARE SCHEDULED. BLADDER IRRIGATION IS CONTINUOUS, LUCAS IN PLACE. 3 LPM O2 VIA NC. HE DOES NOT TOLERATE BEING FLAT FOR ATTENDS CHANGES. 1 ASSIST TO BSC. LOOSE STOOLS, BOWEL CARE HELD. FAMILY IN ROOM THROUGHOUT SHIFT. PT IS A&O X3, FORGETFUL. TELEMETRY: AFIB @ 109 BPM.
[2021-11-15 05:41] LABS: Hematocrit 25.3 % (37.0-53.0); Hemoglobin 7.8 g/dL (13.5-17.5)
[2021-11-15 05:54] LABS: Albumin, Blood 1.9 g/dL (3.4-5.0); Anion Gap 11 mmol/L (6-16); Blood Urea Nitrogen 67 mg/dL (8-24); Bun/Creatinine Ratio 11.3 (12.0-20.0); CO2, Blood 27 mmol/L (21-32); Calcium, Blood 8.6 mg/dL (8.5-10.1); Chloride, Blood 98 mmol/L (98-108); Creatinine, Blood 5.95 mg/dL (0.60-1.20); Glomerular Filtration Rate 9 (60-); Glucose, Blood 130 mg/dL (70-99); Magnesium, Blood 2.7 mg/dL (1.6-2.4); Phosphorus, Blood 6.4 mg/dL (2.5-4.9); Potassium, Blood 5.8 mmol/L (3.5-5.5); Sodium, Blood 136 mmol/L (136-145)
--- NOTE | 2021-11-15 18:34 | NUR ---
SHIFT SUMMARY: PT A/O X 3 TODAY, PLEASANT AND COOPERATIVE BUT VERY WEAK AND TIRED PER PT. PT REPORTED HE HAD A "ROUGH NIGHT". PT CONTINUES TO HAVE CONTINUOUS BLADDER IRRIGATION RUNNING AT THIS TIME. URINE AT ONE POINT TODAY WAS CLEAR BUT AFTER BEING REPOSITIONED AND ROLL CHANGED URINE BECAME RED TINGED AGAIN BUT WAS COMMERCIAL INSURANCE UNDERWRITER THAN IT WAS THIS AM. PT HAD DIALYSIS TODAY AT 1130 AND SLEPT MOST OF THE DAY AFTER DIALYSIS. HE HAD POOR APPETITE AND DID NOT ATTEMPT TO EAT BREAKFAST OR DINNER BUT WAS WIDE AWAKE AT DINNER. NEPRO WAS ORDERED FOR NUTRITION SUPPLEMENT AND HE DID DRINK MOST OF THE NEPRO BUT DID NOT HAVE APPETITE FOR THE DINNER TAKING ONLY A COUPLE BITES. PT MUCH MORE ALERT THIS EVENING. PT DENIED ANY OTHER CONCERNS AND IS RESTING IN BED WITH 2 VISITORS AT HIS SIDE AT END OF SHIFT. WILL REPORT TO EVELIA BARKER.
--- NOTE | 2021-11-16 06:33 | NUR ---
SHIFT SUMMARY 86 YR M ADMITTED ON 11/07/21 FOR PROSTATE ISSUES. DNR. NO ACUTE CHANGES THIS SHIFT. BLADDER IRRIGATION IS DRAINING WELL BUT PT DID REQUEST THAT IT BE FLUSHED ONCE THIS SHIFT HE STATED THAT HE WAS FEELING ALOT OF PRESSURE IN HIS BLADDER AND WAS CONCERNED ABOUT BLOOD CLOTS. CATHETER WAS FLUSHED AND NO BLOOD CLOTS WERE PRESENT BUT IT DRAIN MUCH BETTER AFTER. PT DENIES PAIN BUT STATES THAT HE IS UNCOMFORTABLE IN GENERAL. NO PAIN MEDS GIVEN THIS SHIFT. HE HAS HAD AT LEAST ONE FAMILY MEMBER IN THE ROOM WITH HIM AT ALL TIMES AND THEY ARE RESISTANT TO USE THE CALL LIGHT, BUT RATHER COME INTO THE HALLS LOOKING FOR A NURSE. THEY HAVE BEEN ADVISED THAT USING THE CALL LIGHT IS THE APPROPRIATE WAY TO EXPRESS THEIR NEEDS, BUT THEY CONTINUE TO WANDER THE HALLS LOOKING FOR NURSES. HIS FAMILY IS VERY PROACTIVE IN HIS CARE. PT IS SCHEDULED FOR DIALYSIS TODAY.
--- NOTE | 2021-11-16 17:05 | NUR ---
DAYSHIFT SUMMARY Patient doing well today, alert, follows directions & answers questions appropriately. Dialysis this morning, patient appears tired after infusion. Sleeping comfortably all afternooon. Patient asked what medications he is taking, why, & side effects. Patient reported he is more tired & weak, he thinks it is from the medication. Patient refused to take 1st dose of Augmentin today, stated he will start it tomorrow. Continous bladder irrigation, 8,250 intake & 10,250 output, net total is 2,000. Poor intake today. Worked with therapy, ambulated to bedside commode, loose stools today. Vitals stable, afebrile.
[2021-11-17 05:25] LABS: Hematocrit 24.7 % (37.0-53.0); Hemoglobin 7.5 g/dL (13.5-17.5)
--- NOTE | 2021-11-17 05:56 | NUR ---
SHIFT SUMMARY 86 YR M ADMITTED ON 11/07/21 AFTER CODING DURING DIALYSIS. DNR. PT HAD A VERY GOOD SHIFT TONIGHT. SHORTLY AFTER SHIFT STARTED HE C/O WORSENING PRESSURE IN HIS BLADDER, AND WE MADE THE DECISION TO FLUSH IT. IN DOING SO THIS NURSE WAS ABLE TO EXTRACT SEVERAL LARGE BLOOD CLOTS. IMMEDIATELY AFTER, THE BLOOD TINGED URINE CLEARED UP AND HAS BEEN RUNNING PERFECTLY CLEAR FOR THE ENTIRETY OF THE SHIFT. PT AND HIS DAUGHTER ARE VERY HAPPY ABOUT THIS. PT STATES HE IS NO LONGER HAVING PAIN OR PRESSURE IN HIS BLADDER AREA. PT HAS HAD AT LEAST ONE FAMILY MEMBER IN THE ROOM W/ HIM THE WHOLE TIME AND THIS SEEMS TO MAKE HIM FEEL MORE COMFORTABLE AND AT EASE WITH HIS HOSPITAL STAY. HIS DAUGHTER STAYED W/ HIM LAST NIGHT AND WAS APPROPRIATE W/ THE CALL LIGHT. SHE WAS NOT NEARLY HEAVY ON IT SHE HAS BEEN IN PREVIOUS SHIFTS. BLADDER IRRIGATION: 9000 FLUID IN. 9925 URINE OUT. NET TOTAL FOR OUTPUT= 925.
[2021-11-17 05:58] LABS: Albumin, Blood 1.9 g/dL (3.4-5.0); Anion Gap 7 mmol/L (6-16); Blood Urea Nitrogen 42 mg/dL (8-24); Bun/Creatinine Ratio 10.8 (12.0-20.0); CO2, Blood 32 mmol/L (21-32); Chloride, Blood 98 mmol/L (98-108); Creatinine, Blood 3.88 mg/dL (0.60-1.20); Glomerular Filtration Rate 14 (60-); Glucose, Blood 118 mg/dL (70-99); Magnesium, Blood 1.9 mg/dL (1.6-2.4); Phosphorus, Blood 3.8 mg/dL (2.5-4.9); Sodium, Blood 137 mmol/L (136-145)
--- NOTE | 2021-11-17 15:07 | NUR ---
PT STATES FEELING MAY GO HOME AFTER DIALYSIS TOMORROW. HE DISCUSSED WITH DR CARD. CARE MANAGEMENT TO SEE IF CAN GET BACK ON DIALYSIS FOR NEXT WEEK.
--- NOTE | 2021-11-17 18:26 | NUR ---
PT QUITE PLEASANT TODAY. DID ATTEMPT TO GET UP TO BSC TODAY. STATES LEGS GAVE OUT, ENDED ON FLOOR ON BOTTOM. COLLAR PADDER BLINDSTITCH NOTIFIED. HAS 3 SKIN TEARS ON FOREARMS. STATES NO OTHER INJURIES. DR NOTIFIED. FAMILY NOTIFIED. EXPECTING TO D.C AFTER DIALYSIS TOMORROW. NO OTHER CONCERNS NOTED. BED IN LOW POSITION. CALL LITE IN REACH, BED ALARM ON FOR SAFETY
[2021-11-18 05:18] LABS: Hematocrit 25.8 % (37.0-53.0); Hemoglobin 7.9 g/dL (13.5-17.5)
[2021-11-18 05:55] LABS: Anion Gap 11 mmol/L (6-16); Blood Urea Nitrogen 61 mg/dL (8-24); Bun/Creatinine Ratio 12.7 (12.0-20.0); CO2, Blood 29 mmol/L (21-32); Calcium, Blood 8.6 mg/dL (8.5-10.1); Chloride, Blood 93 mmol/L (98-108); Creatinine, Blood 4.81 mg/dL (0.60-1.20); Glomerular Filtration Rate 11 (60-); Glucose, Blood 127 mg/dL (70-99); Magnesium, Blood 2.3 mg/dL (1.6-2.4); Phosphorus, Blood 4.2 mg/dL (2.5-4.9); Potassium, Blood 4.6 mmol/L (3.5-5.5); Sodium, Blood 133 mmol/L (136-145)
--- NOTE | 2021-11-18 06:18 | NUR ---
SHIFT SUMMARY: PATIENT REFUSES NEED OF PAIN MEDICATION. LARGE BRUISE OBSERVED ON LEFT SIDE. UP TO THE BSC WITH ASSIST OF ONE AND FWW, STAND AND PIVOT. VSS, TELI. IS A-FLUTTER RATE 111. PATIENT REPORTS NO HISTORY OF HYPOTHYROIDISM BUT HAS SYNTHROID ORDERED. PATIENT IS REFUSING SYNTHROID. LUCAS HAS SMALL AMOUNT OF CLEAR YELLOW URINE WITH NO CLOTTS.
[2021-11-18] MEDS ORDERED: FURO80 PO (15:32)
[2021-11-18] MEDS ORDERED: EUTHYROX25 MCG (15:36)
--- NOTE | 2021-11-18 17:27 | NUR ---
DISCHARGE REVIEWED WITH PT AND DAUGHTER . VERBALIZED UNDERSTANDING MEDS AND APPOINTMENTS WITH DIALYSIS AND PCP. PT KEEPING LUCAS PER DR CARD GOING TO UROLOGIST SUNDAY. IV REMOVED INTACT. TELE REMOVED AND RETURNED. PT TRANSPORTED OUT DOOR IN WHEELCHAIR TO FAMILY AT 1730
== END 2021-11-18 17:57 | disposition home health service (06) | DRG 208 ==
LOC: ER 13:19 → ICUE 15:52 → MEDS 11-12 17:51
PROVIDERS: Emergency Medicine; Internal Medicine; Internal Medicine Critical Care Medicine; Internal Medicine Nephrology; Nurse Practitioner Acute Care; ADMIT Internal Medicine
PROC: 0BH18EZ Insertion of Endotracheal Airway into Trachea, Via Natural or Artificial Opening Endoscopic (ICD-10-PCS; principal; 2021-11-07)
PROC: 5A12012 Performance of Cardiac Output, Single, Manual (ICD-10-PCS; 2021-11-07)
PROC: 5A1D70Z Performance of Urinary Filtration, Intermittent, Less than 6 Hours Per Day (ICD-10-PCS; 2021-11-07)
PROC: 5A1945Z Respiratory Ventilation, 24-96 Consecutive Hours (ICD-10-PCS; 2021-11-07)
PROC: 02HV33Z Insertion of Infusion Device into Superior Vena Cava, Percutaneous Approach (ICD-10-PCS; 2021-11-07)
PROC: 3E033XZ Introduction of Vasopressor into Peripheral Vein, Percutaneous Approach (ICD-10-PCS; 2021-11-08)
DX: J18.9 Pneumonia, unspecified organism (principal); I46.9 Cardiac arrest, cause unspecified; G92.8 Other toxic encephalopathy; I50.43 Acute on chronic combined systolic (congestive) and diastolic (congestive) heart failure; J96.01 Acute respiratory failure with hypoxia; N18.6 End stage renal disease; I49.01 Ventricular fibrillation; I13.2 Hypertensive heart and chronic kidney disease with heart failure and with stage 5 chronic kidney disease, or end stage renal disease; N25.81 Secondary hyperparathyroidism of renal origin; E87.1 Hypo-osmolality and hyponatremia; I47.2 Ventricular tachycardia; I48.20 Chronic atrial fibrillation, unspecified; I48.92 Unspecified atrial flutter; Z66 Do not resuscitate; Z20.822 Contact with and (suspected) exposure to COVID-19; I48.0 Paroxysmal atrial fibrillation; E87.5 Hyperkalemia; I25.10 Atherosclerotic heart disease of native coronary artery without angina pectoris; D63.1 Anemia in chronic kidney disease; Z85.46 Personal history of malignant neoplasm of prostate; I25.2 Old myocardial infarction; Z79.899 Other long term (current) drug therapy; Z78.1 Physical restraint status; Z51.5 Encounter for palliative care
CPT/HCPCS: 31500; 36415; 36600; 51702; 70450; 71045; 80047; 80048; 80053; 80069; 81001; 82330; 82803; 83605; 83735; 83880; 84100; 84145; 84439; 84443; 84481; 84484; 85014; 85018; 85025; 87040; 87070; 87086; 87205; 92526; 92610; 92950; 93005; 93010; 93306; 94002; 94003; 94760; 97110; 97116; 97161; 97165; 97530; 97535; 99291-25; 99292; A9270; C1751; C9113; J0330; J0610; J1644; J2060; J2543; J2704; J3010; J7040; J7060; U0004

== ENCOUNTER 2021-11-28 16:10 | Observation (INO) | payer MEDICARE, OTHER ==
[~2021-11-28] VITALS: Ht 170.2 cm; Wt 68.9 kg
[~2021-11-28 16:10] MED LIST changes: +AMOX-CLAV 500-1 EAC5 PO; +Acetaminophen325 M1 PO; +BICALUTAMIDE PO; +DOXYCYCLINE HY100 M1 PO; +EUTHYROX25 MCG; +FURO80 PO; +LISI5 PO; +Mirtazapine15 M1 PO
[2021-11-28 16:50] LABS: BASOPHILS ABSOLUTE AUTO 0.04 K/mm3 (0.00-0.23); BASOPHILS PERCENT AUTO 1 % (0-2); EOSINOPHILS ABSOLUTE AUTO 0.15 K/mm3 (0.00-0.68); EOSINOPHILS PERCENT AUTO 2 % (0-6); Hematocrit 26.6 % (37.0-53.0); Hemoglobin 8.4 g/dL (13.5-17.5); IMMATURE GRAN ABSOLUTE AUTO 0.03 K/mm3 (0.00-0.10); IMMATURE GRAN PERCENT AUTO 0 % (0-1); LYMPHOCYTES ABSOLUTE AUTO 0.74 K/mm3 (0.84-5.20); LYMPHOCYTES PERCENT AUTO 9 % (21-46); MONOCYTES ABSOLUTE AUTO 0.69 K/mm3 (0.16-1.47); MONOCYTES PERCENT AUTO 8 % (4-13); Mean Corpuscular HGB 27.9 pg (26.0-34.0); Mean Corpuscular HGB Conc 31.6 g/dL (31.5-36.5); Mean Corpuscular Volume 88 fL (80-100); Mean Platelet Volume 10.3 fL (9.1-12.4); NEUTROPHILS ABSOLUTE AUTO 6.73 K/mm3 (1.96-9.15); NEUTROPHILS PERCENT AUTO 80 % (41-73); Platelet Count 212 K/mm3 (150-400); RDW Coefficient Variation 23.9 % (11.7-14.2); RDW Standard Deviation 75.6 fL (35.1-46.3); Red Blood Cell Count 3.01 M/mm3 (4.30-5.90); White Blood Cell Count 8.38 K/mm3 (4.00-11.30)
[2021-11-28 17:33] LABS: Albumin, Blood 2.1 g/dL (3.4-5.0); Albumin/Globulin Ratio 0.5 (0.8-1.8); Bilirubin, Total 0.4 mg/dL (0.1-1.0); Calcium, Blood 8.4 mg/dL (8.5-10.1); Creatinine, Blood 5.2 mg/dL (0.60-1.20); Globulin, Blood 4.2 g/dL (2.2-4.0); Potassium, Blood 4.9 mmol/L (3.5-5.5); Total Protein, Blood 6.3 g/dL (6.4-8.2)
[2021-11-28 22:05] LABS: PCO2 Arterial 40.5 mmHg (35-45); PO2 Arterial 113 mmHg (80-100); pH Blood Arterial 7.46 (7.35-7.45)
[2021-11-28] MEDS ORDERED: PROBIOTIC1 EA13 PO (22:05)
--- NOTE | 2021-11-28 22:57 | NUR ---
PT PRESENT WITH LUCAS IN ADMISSION. REFUSING CHANGE. STATES NEPHROLOGY WILL REPLACE NEXT WEEK.
[2021-11-29 04:50] LABS: Hemoglobin 8.3 g/dL (13.5-17.5)
[2021-11-29 05:06] LABS: Anion Gap 10 mmol/L (6-16); Blood Urea Nitrogen 51 mg/dL (8-24); CO2, Blood 28 mmol/L (21-32); Calcium, Blood 8.1 mg/dL (8.5-10.1); Chloride, Blood 97 mmol/L (98-108); Creatinine, Blood 4.25 mg/dL (0.60-1.20); Glomerular Filtration Rate 13 (60-); Glucose, Blood 149 mg/dL (70-99); Magnesium, Blood 2.2 mg/dL (1.6-2.4); Phosphorus, Blood 4.3 mg/dL (2.5-4.9); Potassium, Blood 4.9 mmol/L (3.5-5.5); Sodium, Blood 135 mmol/L (136-145)
--- NOTE | 2021-11-29 05:49 | NUR ---
SHIFT SUMMARY ER ADMIT, PT ARRIVED TO PCU AT 2145. BP STABLE. AFEBRILE. AFIB 110'S ON ARRIVAL, PT FEELING SOB ON 2L NC SATS OVER 98%. PT STATES HE WAS "UNABLE TO CATCH A FULL BREATH". DAUGHTER IN ROOM, PT REQUESTING DIALYSIS. AWARE, HD ORDERED AND COMPLETED. POST DIALYSIS PT STATES HE FEELS MUCH BETTER AND BREATHING IS EASIER. LUCAS IN PLACE DRAINING TO GRAVITY. IN BED SLEEPING WITH CALL ALARM AT SIDE, WILL CONTINUE TO MONITOR UNTIL REPORT GIVEN TO DAYSHIFT RN
--- NOTE | 2021-11-29 07:45 | NUR ---
PT BACK TO BED WITH FAMILY ASSIST. PT IS A/O X4. DENIES PAIN OR SOB. IV PLACED TO LFA. HD CATH TO RCW WITH C/D/I DRESSING. PT IS TO HAVE DIALYSIS TODAY. PT HAS CHRONIC LUCAS THAT IS MANAGED BY UROLOGY. DOES PRODUCE URINE. NO SIGN OF DISTRESS. CALL LIGHT IN REACH.
--- NOTE | 2021-11-29 09:04 | NUR ---
PT TAKEN TO DIALYSIS VIA BED, NO SIGN OF DISTRESS. INSTRUCTED TO HOLD METOPROLOL PER PROPERTY SITE MANAGER.
[2021-11-29] MEDS ORDERED: MIRALAX17 GM PO (16:12)
--- NOTE | 2021-11-29 16:52 | NUR ---
PT A/O X4. DENIES PAIN. DIALYSIS TODAY WITH 2.5L OFF AND TOLERATED WELL. METOPROLOL GIVEN AFTERWARD AND HR DECREASED TO 80'S-90'S. PT ANXIOUS TO GO HOME. DR. FULLER WROTE D/C ORDERS. D/C INSTRUCTIONS GONE OVER WITH PT AND FAMILY. PT HAS HOME O2 TANK FOR D/C. PT WHEELED OUT BY BUSINESS SYSTEMS ADVISOR WITH FAMILY. NO SIGN OF DISTRESS.
== END 2021-11-29 16:41 | disposition home or self-care (01) ==
LOC: ER 16:10 → PCU 21:25
PROVIDERS: Internal Medicine Nephrology; Student in an Organized Health Care Education/Training Program; ADMIT Internal Medicine
DX: I13.2 Hypertensive heart and chronic kidney disease with heart failure and with stage 5 chronic kidney disease, or end stage renal disease (principal); N18.6 End stage renal disease; I50.43 Acute on chronic combined systolic (congestive) and diastolic (congestive) heart failure; E87.1 Hypo-osmolality and hyponatremia; Z99.2 Dependence on renal dialysis; D63.1 Anemia in chronic kidney disease; N25.81 Secondary hyperparathyroidism of renal origin; I25.10 Atherosclerotic heart disease of native coronary artery without angina pectoris; J96.11 Chronic respiratory failure with hypoxia; E03.9 Hypothyroidism, unspecified; I48.0 Paroxysmal atrial fibrillation; Z85.46 Personal history of malignant neoplasm of prostate; Z79.899 Other long term (current) drug therapy
CPT/HCPCS: 36415; 36600; 71045; 80053; 80069; 82803; 83735; 84132; 84484; 85014; 85018; 85025; 93005; 93010; 96372; 99285-25; A9270; G0257; G0378; J0881; J1644